=== PATIENT | male | born 1965 | race Caucasian/White ===

== ENCOUNTER 2017-08-01 18:44 | Emergency (ER) | payer MEDICAID, OTHER ==
[~2017-08-01] VITALS: Ht 172.7 cm; Wt 81.8 kg
[~2017-08-01 18:44] MED LIST: FLUO-191 PO; LEVE500T53 PO; LISI-661 PO; OLAN5TAB2 PO
[2017-08-01 19:45] VITALS: BP 132/98
== END 2017-08-01 20:29 | disposition left against medical advice (07) ==
LOC: EMS 18:45
DX: Z76.0 Encounter for issue of repeat prescription (principal); R45.851 Suicidal ideations; F20.9 Schizophrenia, unspecified; F43.10 Post-traumatic stress disorder, unspecified; Z79.899 Other long term (current) drug therapy
CPT/HCPCS: 99281

== ENCOUNTER 2018-10-31 21:26 | Inpatient (IN) | payer MEDICAID, OTHER ==
[~2018-10-31] VITALS: Ht 172.7 cm; Wt 86.1 kg
[2018-10-31] MEDS ORDERED: BUPR100 PO (21:46)
[2018-10-31] MEDS ORDERED: HALO1 PO (21:46)
[2018-10-31 21:57] LABS: BASOPHILS % (AUTO) 0.8 % (0.0-2.0); EOSINOPHILS % (AUTO) 0.5 % (1.0-6.0); HEMATOCRIT 47.2 % (41-53); HEMOGLOBIN 16.3 g/dL (13.5-17.5); LYMPHOCYTES # (AUTO) 1.7 K/uL (1.0-4.8); LYMPHOCYTES % (AUTO) 20.9 % (22.0-44.0); MEAN CORPUSCULAR HEMOGLOBIN 32.5 pg (26.0-34.0); MEAN CORPUSCULAR HGB CONC 34.6 G/dL (31.0-37.0); MEAN CORPUSCULAR VOLUME 94 fL (80-100); MONOCYTES # (AUTO) 0.8 K/uL (0.1-1.0); MONOCYTES % (AUTO) 9.4 % (2.0-9.0); NEUTROPHILS # (AUTO) 5.6 K/uL (1.8-7.7); NEUTROPHILS % (AUTO) 68.4 % (40.0-70.0); PLATELET COUNT (AUTO) 334 K/uL (150-450); RED BLOOD CELL COUNT(AUTO) 5.03 MIL/uL (4.50-5.90); RED CELL DISTRIBUTION WIDTH 14.1 % (11.5-14.5)
[2018-10-31] MEDS ORDERED: PB/HYOSCY/ATR/SCOP/LIDO/MAALOX 55 ML BOTTLE PO ONE (22:00)
[2018-10-31 22:08] LABS: ANION GAP 11 mmol/L (8-16); CALCIUM, TOTAL 9.2 mg/dL (8.8-10.5); CARBON DIOXIDE 28 mmol/L (22-29); CHLORIDE 100 mmol/L (98-107); CREATININE 1.01 mg/dL (0.60-1.30); GLOMERULAR FILTR. RATE CALC > 60 mL/min (>60); GLUCOSE,RANDOM 101 mg/dL (70-110); POTASSIUM 4.4 mmol/L (3.5-5.1); SODIUM SERUM 139 mmol/L (136-145); UREA NITROGEN, BLOOD 17 mg/dL (7-18)
[2018-10-31 22:14] LABS: ALANINE AMINOTRANSFERASE 376 U/L (12-78); ALBUMIN 4.3 g/dL (3.4-5.0); ALKALINE PHOSPHATASE 77 U/L (46-116); ASPARTATE AMINOTRANSFERASE 199 U/L (15-37); BILIRUBIN,TOTAL 0.5 mg/dL (0.1-1.0); TOTAL PROTEIN, SERUM 8.7 g/dL (6.4-8.2)
[2018-10-31 22:35] LABS: AMPHET/METH SCREEN,URINE NEGATIVE (NEGATIVE); BARBITURATE SCREEN, URINE NEGATIVE (NEGATIVE); BENZODIAZEPINES SCREEN,URINE NEGATIVE (NEGATIVE); CANNABINOID SCREEN,URINE NEGATIVE (NEGATIVE); COCAINE SCREEN,URINE NEGATIVE (NEGATIVE); METHADONE SCREEN, URINE NEGATIVE (NEGATIVE); OPIATE SCREEN,URINE POSITIVE (NEGATIVE)
[2018-10-31 22:40] LABS: PHENCYCLIDINE SCREEN,URINE NEGATIVE (NEGATIVE)
[2018-11-01 04:34] VITALS: BP 128/85
[2018-11-01] MEDS: LORazepam 2 MG TABLET PO PRN (05:11)
[2018-11-01] MEDS ORDERED: MAG HYDROX/AL HYDROX/SIMETH ES 30 ML SUSPENSION UDCUP PO PRN (06:15)
[2018-11-01] MEDS ORDERED: ACETAMINOPHEN 325 MG TABLET PO PRN (06:15)
[2018-11-01] MEDS ORDERED: NICOTINE 14 MG/24 HOUR PATCH TD PRN (06:15)
[2018-11-01] MEDS ORDERED: DOCUSATE SODIUM 100 MG CAPSULE PO PRN (06:15)
[2018-11-01] MEDS ORDERED: MAGNESIUM HYDROXIDE SUSPENSION 30 ML UDCUP PO PRN (06:15)
[2018-11-01] MEDS ORDERED: CloNIDine HCL 0.1 MG TABLET PO PRN (06:15)
[2018-11-01] MEDS ORDERED: IBUPROFEN 400 MG TABLET PO PRN (06:15)
[2018-11-01] MEDS ORDERED: ALBUTEROL SULFATE HFA 90 MCG/PUFF 8 GM INHALER IH PRN (06:15)
[2018-11-01] MEDS ORDERED: ONDANSETRON HCL 4 MG TABLET PO PRN (06:15)
[2018-11-01] MEDS ORDERED: PETROLATUM,WHITE 28 GM JELLY TP PRN (06:15)
[2018-11-01] MEDS ORDERED: LOPERAMIDE HCL 2 MG CAPSULE PO PRN (06:15)
[2018-11-01] MEDS ORDERED: GuaiFENesin/D-METHORPHAN [SUGAR-FREE] 200-20MG/10 ML SYRUP UDCUP PO PRN (06:15)
[2018-11-01 08:15] VITALS: BP 119/89
[2018-11-01] MEDS: LevETIRAcetam 500 MG TABLET PO SCH ×4 (08:39→21:00)
[2018-11-01] MEDS ORDERED: LISINOPRIL 10 MG TABLET PO SCH (09:00)
[2018-11-01] MEDS: BuPROPion HCL 150 MG SR TABLET PO SCH ×2 (11:28→16:37)
[2018-11-01] MEDS: FLUoxetine HCL 20 MG CAPSULE PO SCH (11:29)
[2018-11-01 16:56] VITALS: BP 124/82
[2018-11-01] MEDS: OLANZapine 10 MG TABLET PO SCH (20:15)
[2018-11-01] MEDS: HALOPERIDOL 5 MG TABLET PO PRN (20:15)
[2018-11-01] MEDS: ZOLPIDEM TARTRATE 10 MG TABLET PO PRN (20:15)
[2018-11-02 06:40] LABS: BASOPHILS % (AUTO) 0.7 % (0.0-2.0); EOSINOPHILS % (AUTO) 2.2 % (1.0-6.0); HEMATOCRIT 44.7 % (41-53); HEMOGLOBIN 14.9 g/dL (13.5-17.5); LYMPHOCYTES # (AUTO) 2.4 K/uL (1.0-4.8); MEAN CORPUSCULAR HEMOGLOBIN 31.8 pg (26.0-34.0); MEAN CORPUSCULAR HGB CONC 33.4 G/dL (31.0-37.0); MEAN CORPUSCULAR VOLUME 95 fL (80-100); MONOCYTES # (AUTO) 0.8 K/uL (0.1-1.0); MONOCYTES % (AUTO) 15.8 % (2.0-9.0); NEUTROPHILS # (AUTO) 1.8 K/uL (1.8-7.7); NEUTROPHILS % (AUTO) 34.3 % (40.0-70.0); PLATELET COUNT (AUTO) 280 K/uL (150-450); RED BLOOD CELL COUNT(AUTO) 4.69 MIL/uL (4.50-5.90); RED CELL DISTRIBUTION WIDTH 14.1 % (11.5-14.5)
[2018-11-02 06:57] LABS: AMPHET/METH SCREEN,URINE NEGATIVE (NEGATIVE); BARBITURATE SCREEN, URINE POSITIVE (NEGATIVE); BENZODIAZEPINES SCREEN,URINE NEGATIVE (NEGATIVE); CANNABINOID SCREEN,URINE NEGATIVE (NEGATIVE); COCAINE SCREEN,URINE NEGATIVE (NEGATIVE); METHADONE SCREEN, URINE NEGATIVE (NEGATIVE); OPIATE SCREEN,URINE POSITIVE (NEGATIVE)
[2018-11-02 06:59] LABS: PHENCYCLIDINE SCREEN,URINE NEGATIVE (NEGATIVE)
[2018-11-02 07:04] LABS: HEMOGLOBIN A1C 5.4 % (4.5-6.2)
[2018-11-02 07:13] LABS: ALANINE AMINOTRANSFERASE 250 U/L (12-78); ALBUMIN 3.4 g/dL (3.4-5.0); ALKALINE PHOSPHATASE 59 U/L (46-116); ANION GAP 8 mmol/L (8-16); ASPARTATE AMINOTRANSFERASE 118 U/L (15-37); BILIRUBIN,TOTAL 0.6 mg/dL (0.1-1.0); CALCIUM, TOTAL 8.6 mg/dL (8.8-10.5); CARBON DIOXIDE 28 mmol/L (22-29); CHLORIDE 103 mmol/L (98-107); CHOLESTEROL 157 mg/dL (131-200); CREATININE 0.93 mg/dL (0.60-1.30); GLOMERULAR FILTR. RATE CALC > 60 mL/min (>60); GLUCOSE,RANDOM 93 mg/dL (70-110); HDL CHOLESTEROL 52 mg/dL (40-60); LDL CHOL (CALC.) 90 mg/dL (0-130); POTASSIUM 4.4 mmol/L (3.5-5.1); SODIUM SERUM 139 mmol/L (136-145); THYROID STIMULATING HORMONE 2.47 uIU/mL (0.36-3.74); TRIGLYCERIDES 76 mg/dL (15-150); UREA NITROGEN, BLOOD 17 mg/dL (7-18)
[2018-11-02 07:21] LABS: APPEARANCE,URINE CLEAR (CLEAR); BILIRUBIN,URINE NEGATIVE (NEGATIVE); GLUCOSE, URINE (UA) NEGATIVE (NEGATIVE); KETONES,URINE NEGATIVE (NEGATIVE); LEUKOCYTE ESTERASE ,URINE NEGATIVE (NEGATIVE); NITRATE,URINE NEGATIVE (NEGATIVE); OCCULT BLOOD,URINE NEGATIVE (NEGATIVE); PROTEIN,URINE NEGATIVE (NEGATIVE); UROBILINOGEN,URINE 0.2 mg/dL (<=1.0)
[2018-11-02 08:03] VITALS: BP_SYST 11; BP_SYST 111; BP_DIAS 67
[2018-11-02] MEDS: BuPROPion HCL 150 MG SR TABLET PO SCH ×2 (08:07→17:36)
[2018-11-02] MEDS: LISINOPRIL 10 MG TABLET PO SCH (08:07)
[2018-11-02] MEDS: FLUoxetine HCL 20 MG CAPSULE PO SCH (08:07)
[2018-11-02] MEDS: LevETIRAcetam 500 MG TABLET PO SCH ×2 (08:07→21:10)
[2018-11-02] MEDS: LORazepam 2 MG TABLET PO PRN ×3 (08:29→21:10)
[2018-11-02] MEDS: HALOPERIDOL 5 MG TABLET PO PRN (16:09)
[2018-11-02 17:51] VITALS: BP 112/67
[2018-11-02] MEDS: OLANZapine 10 MG TABLET PO SCH (21:10)
[2018-11-02] MEDS: ZOLPIDEM TARTRATE 10 MG TABLET PO PRN (21:10)
[2018-11-03 08:10] VITALS: BP 134/76
[2018-11-03] MEDS: FLUoxetine HCL 20 MG CAPSULE PO SCH (09:58)
[2018-11-03] MEDS: LevETIRAcetam 500 MG TABLET PO SCH ×2 (09:58→21:23)
[2018-11-03] MEDS: BuPROPion HCL 150 MG SR TABLET PO SCH ×2 (09:58→18:00)
[2018-11-03] MEDS: LISINOPRIL 10 MG TABLET PO SCH (09:58)
[2018-11-03] MEDS: LORazepam 2 MG TABLET PO PRN ×2 (09:59→17:14)
[2018-11-03] MEDS: HALOPERIDOL 5 MG TABLET PO PRN (17:14)
[2018-11-03 19:41] VITALS: BP 120/73
[2018-11-03] MEDS: OLANZapine 10 MG TABLET PO SCH (21:23)
[2018-11-04 01:20] VITALS: BP 114/73
[2018-11-04] MEDS: LORazepam 2 MG TABLET PO PRN ×5 (01:25→16:50)
[2018-11-04] MEDS: HALOPERIDOL 5 MG TABLET PO PRN (06:53)
[2018-11-04 08:03] VITALS: BP 131/92
[2018-11-04] MEDS: BuPROPion HCL 150 MG SR TABLET PO SCH ×2 (09:15→16:50)
[2018-11-04] MEDS: LevETIRAcetam 500 MG TABLET PO SCH ×2 (09:16→20:14)
[2018-11-04] MEDS: FLUoxetine HCL 20 MG CAPSULE PO SCH (09:16)
[2018-11-04] MEDS: LISINOPRIL 10 MG TABLET PO SCH (09:16)
[2018-11-04 17:19] VITALS: BP 107/67
[2018-11-04] MEDS: ZOLPIDEM TARTRATE 10 MG TABLET PO PRN (20:14)
[2018-11-04] MEDS: OLANZapine 10 MG TABLET PO SCH (20:14)
[2018-11-05] MEDS: BuPROPion HCL 150 MG SR TABLET PO SCH ×2 (08:36→16:21)
[2018-11-05] MEDS: LevETIRAcetam 500 MG TABLET PO SCH ×2 (08:36→20:04)
[2018-11-05] MEDS: LISINOPRIL 10 MG TABLET PO SCH (08:36)
[2018-11-05] MEDS: FLUoxetine HCL 20 MG CAPSULE PO SCH ×2 (08:36→09:00)
[2018-11-05] MEDS: LORazepam 2 MG TABLET PO PRN (08:39)
[2018-11-05 10:41] VITALS: BP 127/77
[2018-11-05 17:00] VITALS: BP 122/53
[2018-11-05] MEDS: ZOLPIDEM TARTRATE 10 MG TABLET PO PRN (20:06)
[2018-11-05] MEDS: OLANZapine 7.5 MG TABLET PO SCH (20:08)
[2018-11-05] MEDS: FLUTICASONE PROPIONATE 50 MCG/SPRAY 16 GM NASAL SPRAY NASAL SCH (21:18)
[2018-11-06 08:11] VITALS: BP 105/71
[2018-11-06] MEDS: FLUoxetine HCL 20 MG CAPSULE PO SCH (08:57)
[2018-11-06] MEDS: BuPROPion HCL 150 MG SR TABLET PO SCH ×2 (08:58→16:13)
[2018-11-06] MEDS: LORazepam 2 MG TABLET PO PRN (08:58)
[2018-11-06] MEDS: LevETIRAcetam 500 MG TABLET PO SCH ×2 (08:58→20:16)
[2018-11-06] MEDS: LISINOPRIL 10 MG TABLET PO SCH (08:58)
[2018-11-06] MEDS: FLUTICASONE PROPIONATE 50 MCG/SPRAY 16 GM NASAL SPRAY NASAL SCH ×2 (08:59→16:13)
[2018-11-06 17:44] VITALS: BP 130/66
[2018-11-06] MEDS: OLANZapine 7.5 MG TABLET PO SCH (20:16)
[2018-11-06] MEDS: ZOLPIDEM TARTRATE 10 MG TABLET PO PRN (20:19)
[2018-11-07 08:02] VITALS: BP 120/69
[2018-11-07] MEDS: FLUoxetine HCL 20 MG CAPSULE PO SCH (08:35)
[2018-11-07] MEDS: FLUTICASONE PROPIONATE 50 MCG/SPRAY 16 GM NASAL SPRAY NASAL SCH (08:35)
[2018-11-07] MEDS: LORazepam 2 MG TABLET PO PRN (08:35)
[2018-11-07] MEDS: LISINOPRIL 10 MG TABLET PO SCH (08:35)
[2018-11-07] MEDS: BuPROPion HCL 150 MG SR TABLET PO SCH (08:35)
[2018-11-07] MEDS: LevETIRAcetam 500 MG TABLET PO SCH (08:35)
[2018-11-07] MEDS ORDERED: FLUT16H NASAL (13:27)
[2018-11-07] MEDS ORDERED: BUPR150SR PO (13:32)
== END 2018-11-07 14:45 | disposition home or self-care (01) | DRG 750 ==
LOC: EMS 21:40 → 3EI 11-01 03:50
PROVIDERS: ADMIT Psychiatry & Neurology Child & Adolescent Psychiatry; ATTEND Psychiatry & Neurology Child & Adolescent Psychiatry
DX: F25.1 Schizoaffective disorder, depressive type (principal); R45.851 Suicidal ideations; G40.909 Epilepsy, unspecified, not intractable, without status epilepticus; F17.210 Nicotine dependence, cigarettes, uncomplicated; F43.10 Post-traumatic stress disorder, unspecified; I10 Essential (primary) hypertension; J44.9 Chronic obstructive pulmonary disease, unspecified; R74.0 Nonspecific elevation of levels of transaminase and lactic acid dehydrogenase [LDH]; F15.90 Other stimulant use, unspecified, uncomplicated; F11.90 Opioid use, unspecified, uncomplicated; G47.00 Insomnia, unspecified; Z79.899 Other long term (current) drug therapy; Z59.0 Homelessness
CPT/HCPCS: 80307; 83036; 84443; G0480

== ENCOUNTER 2019-05-04 14:22 | Inpatient (IN) | payer MEDICAID, OTHER ==
[~2019-05-04] VITALS: Ht 172.7 cm; Wt 80.8 kg
[~2019-05-04 14:22] MED LIST changes: +BUPR150SR PO; +FLUT16H NASAL
[2019-05-04] MEDS ORDERED: RISP.5 PO (16:20)
[2019-05-04] MEDS ORDERED: HYDR-4031 PO (16:20)
[2019-05-04] MEDS ORDERED: HALOPERIDOL LACTATE 5 MG/ML VIAL IM ONE (16:30)
[2019-05-04] MEDS ORDERED: LORazepam 2 MG/ML VIAL IM ONE (16:30)
[2019-05-04] MEDS ORDERED: DiphenhydrAMINE HCL 50 MG/ML VIAL IM ONE (16:30)
[2019-05-04] MEDS ORDERED: HALOPERIDOL 5 MG TABLET PO PRN (19:00)
[2019-05-04] MEDS ORDERED: ZOLPIDEM TARTRATE 10 MG TABLET PO PRN (19:00)
[2019-05-04 21:03] LABS: BASOPHILS % (AUTO) 1.6 % (0.0-2.0); EOSINOPHILS % (AUTO) 1.2 % (1.0-6.0); HEMATOCRIT 41.8 % (41-53); HEMOGLOBIN 14.5 g/dL (13.5-17.5); LYMPHOCYTES # (AUTO) 2.4 K/uL (1.0-4.8); MEAN CORPUSCULAR HEMOGLOBIN 32.2 pg (26.0-34.0); MEAN CORPUSCULAR HGB CONC 34.7 G/dL (31.0-37.0); MEAN CORPUSCULAR VOLUME 93 fL (80-100); MONOCYTES # (AUTO) 0.7 K/uL (0.1-1.0); MONOCYTES % (AUTO) 11.7 % (2.0-9.0); NEUTROPHILS # (AUTO) 2.6 K/uL (1.8-7.7); NEUTROPHILS % (AUTO) 44.5 % (40.0-70.0); PLATELET COUNT (AUTO) 338 K/uL (150-450); RED CELL DISTRIBUTION WIDTH 13.7 % (11.5-14.5)
[2019-05-04 21:31] LABS: ANION GAP 13 mmol/L (8-16); CALCIUM, TOTAL 8.6 mg/dL (8.8-10.5); CARBON DIOXIDE 24 mmol/L (22-29); CHLORIDE 101 mmol/L (98-107); CREATININE 0.82 mg/dL (0.60-1.30); GLOMERULAR FILTR. RATE CALC > 60 mL/min (>60); GLUCOSE,RANDOM 85 mg/dL (70-110); POTASSIUM 3.9 mmol/L (3.5-5.1); SODIUM SERUM 138 mmol/L (136-145); UREA NITROGEN, BLOOD 9 mg/dL (7-18)
[2019-05-04 21:37] LABS: ALANINE AMINOTRANSFERASE 36 U/L (12-78); ALBUMIN 3.4 g/dL (3.4-5.0); ALKALINE PHOSPHATASE 64 U/L (46-116); ASPARTATE AMINOTRANSFERASE 43 U/L (15-37); BILIRUBIN,TOTAL 1.4 mg/dL (0.1-1.0)
[2019-05-05 02:25] VITALS: BP 111/63
[2019-05-05] MEDS ORDERED: INFLUENZA VIRUS VACCINE QVS 2019-20 (3YR+)/PF 60 MCG/0.5 ML SYRINGE IM ONE (03:45)
[2019-05-05 07:53] LABS: CHOL/HDL RATIO 2.5 (4.2-7.3)
[2019-05-05 08:16] VITALS: BP 118/71
[2019-05-05] MEDS ORDERED: PETROLATUM,WHITE 28 GM JELLY TP PRN (12:15)
[2019-05-05] MEDS ORDERED: MAGNESIUM HYDROXIDE SUSPENSION 30 ML UDCUP PO PRN (12:15)
[2019-05-05] MEDS ORDERED: ACETAMINOPHEN 325 MG TABLET PO PRN (12:15)
[2019-05-05] MEDS ORDERED: ONDANSETRON HCL 4 MG TABLET PO PRN (12:15)
[2019-05-05] MEDS ORDERED: MAG HYDROX/AL HYDROX/SIMETH ES 30 ML SUSPENSION UDCUP PO PRN (12:15)
[2019-05-05] MEDS ORDERED: LOPERAMIDE HCL 2 MG CAPSULE PO PRN (12:15)
[2019-05-05] MEDS ORDERED: IBUPROFEN 400 MG TABLET PO PRN (12:15)
[2019-05-05] MEDS ORDERED: CloNIDine HCL 0.1 MG TABLET PO PRN (12:15)
[2019-05-05] MEDS ORDERED: NICOTINE 14 MG/24 HOUR PATCH TD PRN (12:15)
[2019-05-05] MEDS ORDERED: ALBUTEROL SULFATE HFA 90 MCG/PUFF 8 GM INHALER IH PRN (12:15)
[2019-05-05] MEDS ORDERED: DOCUSATE SODIUM 100 MG CAPSULE PO PRN (12:15)
[2019-05-05] MEDS: LevETIRAcetam 500 MG TABLET PO SCH ×3 (12:15→20:53)
[2019-05-05] MEDS ORDERED: GuaiFENesin/D-METHORPHAN [SUGAR-FREE] 200-20MG/10 ML SYRUP UDCUP PO PRN (12:15)
[2019-05-05] MEDS: FLUTICASONE PROPIONATE 50 MCG/SPRAY 16 GM NASAL SPRAY NASAL SCH (16:21)
[2019-05-05] MEDS: LORazepam 2 MG TABLET PO PRN (17:00)
[2019-05-05 17:01] VITALS: BP 114/65
[2019-05-05 17:36] VITALS: BP 114/65
[2019-05-05] MEDS ORDERED: OLANZapine 7.5 MG TABLET PO SCH (21:00)
[2019-05-06 06:06] VITALS: BP 108/67
[2019-05-06] MEDS: LORazepam 2 MG TABLET PO PRN (06:20)
[2019-05-06 07:57] VITALS: BP 102/38
[2019-05-06] MEDS: LevETIRAcetam 500 MG TABLET PO SCH (08:27)
[2019-05-06] MEDS: FLUTICASONE PROPIONATE 50 MCG/SPRAY 16 GM NASAL SPRAY NASAL SCH (08:28)
[2019-05-06] MEDS ORDERED: LISINOPRIL 10 MG TABLET PO SCH (09:00)
== END 2019-05-06 13:40 | disposition home or self-care (01) | DRG 750 ==
LOC: EMS 14:23 → B3A 05-05 00:57 → UNDODISIN 05-06 13:40
PROVIDERS: ADMIT Psychiatry & Neurology Psychiatry; ATTEND Psychiatry & Neurology Psychiatry
DX: F25.0 Schizoaffective disorder, bipolar type (principal); G40.909 Epilepsy, unspecified, not intractable, without status epilepticus; F10.10 Alcohol abuse, uncomplicated; I10 Essential (primary) hypertension; J30.9 Allergic rhinitis, unspecified; F17.210 Nicotine dependence, cigarettes, uncomplicated; Y90.9 Presence of alcohol in blood, level not specified; F43.10 Post-traumatic stress disorder, unspecified; Z59.0 Homelessness; Z91.83 Wandering in diseases classified elsewhere
CPT/HCPCS: 99291; G0480; J1200; J1630; J2060

== ENCOUNTER 2019-05-08 15:41 | Inpatient (IN) | payer MEDICAID, OTHER ==
[~2019-05-08] VITALS: Ht 172.7 cm; Wt 85.0 kg
[~2019-05-08 15:41] MED LIST changes: -BUPR150SR PO; -FLUO-191 PO
[2019-05-08] MEDS ORDERED: BUPR75 PO (15:56)
[2019-05-08 16:48] LABS: BASOPHILS % (AUTO) 0.7 % (0.0-2.0); EOSINOPHILS % (AUTO) 0.1 % (1.0-6.0); HEMATOCRIT 41.8 % (41-53); HEMOGLOBIN 14.4 g/dL (13.5-17.5); LYMPHOCYTES # (AUTO) 2.8 K/uL (1.0-4.8); MEAN CORPUSCULAR HEMOGLOBIN 32.2 pg (26.0-34.0); MEAN CORPUSCULAR HGB CONC 34.3 G/dL (31.0-37.0); MEAN CORPUSCULAR VOLUME 94 fL (80-100); MONOCYTES # (AUTO) 1.1 K/uL (0.1-1.0); MONOCYTES % (AUTO) 15.6 % (2.0-9.0); NEUTROPHILS # (AUTO) 3.1 K/uL (1.8-7.7); NEUTROPHILS % (AUTO) 43.6 % (40.0-70.0); PLATELET COUNT (AUTO) 345 K/uL (150-450); RED BLOOD CELL COUNT(AUTO) 4.47 MIL/uL (4.50-5.90); RED CELL DISTRIBUTION WIDTH 13.8 % (11.5-14.5)
[2019-05-08] MEDS ORDERED: OLAN7.5T2 PO (17:01)
[2019-05-08 17:02] LABS: ANION GAP 10 mmol/L (8-16); CALCIUM, TOTAL 9.2 mg/dL (8.8-10.5); CARBON DIOXIDE 26 mmol/L (22-29); CHLORIDE 103 mmol/L (98-107); CREATININE 1.44 mg/dL (0.60-1.30); GLOMERULAR FILTR. RATE CALC 51 mL/min (>60); GLUCOSE,RANDOM 85 mg/dL (70-110); POTASSIUM 3.6 mmol/L (3.5-5.1); SODIUM SERUM 139 mmol/L (136-145); UREA NITROGEN, BLOOD 12 mg/dL (7-18)
[2019-05-08 17:06] LABS: ALANINE AMINOTRANSFERASE 47 U/L (12-78); ALBUMIN 4.2 g/dL (3.4-5.0); ALKALINE PHOSPHATASE 67 U/L (46-116); ASPARTATE AMINOTRANSFERASE 69 U/L (15-37); BILIRUBIN,TOTAL 0.6 mg/dL (0.1-1.0); TOTAL PROTEIN, SERUM 8.4 g/dL (6.4-8.2)
[2019-05-08 18:50] VITALS: BP 99/67
[2019-05-09 08:57] VITALS: BP 100/64
[2019-05-09] MEDS: NICOTINE 21 MG/24 HOUR PATCH TD SCH (09:00)
[2019-05-09 09:10] VITALS: BP 100/64
[2019-05-09] MEDS ORDERED: OLANZapine 10 MG TABLET PO ONE (10:30)
[2019-05-09] MEDS ORDERED: DOCUSATE SODIUM 100 MG CAPSULE PO PRN (13:30)
[2019-05-09] MEDS ORDERED: OMEPRAZOLE 20 MG CAPSULE PO PRN (13:30)
[2019-05-09] MEDS ORDERED: ACETAMINOPHEN 325 MG TABLET PO PRN (13:30)
[2019-05-09] MEDS ORDERED: ONDANSETRON HCL 4 MG TABLET PO PRN (13:30)
[2019-05-09] MEDS ORDERED: CloNIDine HCL 0.1 MG TABLET PO PRN (13:30)
[2019-05-09] MEDS ORDERED: MAGNESIUM HYDROXIDE SUSPENSION 30 ML UDCUP PO PRN (13:30)
[2019-05-09] MEDS ORDERED: IBUPROFEN 600 MG TABLET PO PRN (13:30)
[2019-05-09] MEDS ORDERED: ALBUTEROL SULFATE HFA 90 MCG/PUFF 8 GM INHALER IH PRN (13:30)
[2019-05-09] MEDS ORDERED: BACITRACIN 28.4 GM OINTMENT TP PRN (13:30)
[2019-05-09] MEDS ORDERED: LOPERAMIDE HCL 2 MG CAPSULE PO PRN (13:30)
[2019-05-09] MEDS ORDERED: BENZOCAINE/MENTHOL LOZENGE MM PRN (13:30)
[2019-05-09] MEDS ORDERED: MAG HYDROX/AL HYDROX/SIMETH ES 30 ML SUSPENSION UDCUP PO PRN (13:30)
[2019-05-09] MEDS ORDERED: PETROLATUM,WHITE 28 GM JELLY TP PRN (13:30)
[2019-05-09 19:44] VITALS: BP 107/57
[2019-05-09] MEDS: LevETIRAcetam 500 MG TABLET PO SCH ×2 (20:06→20:50)
[2019-05-09 20:43] VITALS: BP 118/72
[2019-05-09] MEDS: LORazepam 2 MG TABLET PO PRN (20:50)
[2019-05-09] MEDS: ZOLPIDEM TARTRATE 10 MG TABLET PO PRN (21:37)
[2019-05-10] MEDS: NICOTINE 21 MG/24 HOUR PATCH TD SCH (09:00)
[2019-05-10] MEDS: BuPROPion HCL 75 MG TABLET PO SCH ×3 (09:22→16:46)
[2019-05-10] MEDS: LevETIRAcetam 500 MG TABLET PO SCH ×2 (09:22→20:50)
[2019-05-10] MEDS: OLANZapine 10 MG TABLET PO SCH ×2 (09:23→16:46)
[2019-05-10 09:25] VITALS: BP 118/70
[2019-05-10 17:30] VITALS: BP 110/68
[2019-05-11 08:44] VITALS: BP 109/65
[2019-05-11] MEDS: NICOTINE 21 MG/24 HOUR PATCH TD SCH (09:00)
[2019-05-11] MEDS: LevETIRAcetam 500 MG TABLET PO SCH ×2 (09:19→20:09)
[2019-05-11] MEDS: OLANZapine 10 MG TABLET PO SCH ×2 (09:19→16:18)
[2019-05-11] MEDS: BuPROPion HCL 75 MG TABLET PO SCH ×3 (09:20→16:18)
[2019-05-12 08:29] VITALS: BP 125/57
[2019-05-12] MEDS ORDERED: BuPROPion HCL XL 150 MG ER TABLET PO SCH (09:00)
[2019-05-12] MEDS: NICOTINE 21 MG/24 HOUR PATCH TD SCH (09:00)
[2019-05-12] MEDS: LevETIRAcetam 500 MG TABLET PO SCH ×2 (09:43→20:05)
[2019-05-12] MEDS: OLANZapine 10 MG TABLET PO SCH (09:43)
[2019-05-12] MEDS ORDERED: BuPROPion HCL XL 150 MG ER TABLET PO ONE (11:15)
[2019-05-12] MEDS: OLANZapine 7.5 MG TABLET PO SCH (16:28)
[2019-05-12] MEDS: ZOLPIDEM TARTRATE 10 MG TABLET PO PRN (20:05)
[2019-05-13] MEDS: LevETIRAcetam 500 MG TABLET PO SCH ×2 (08:29→20:26)
[2019-05-13] MEDS: OLANZapine 7.5 MG TABLET PO SCH ×2 (08:30→16:36)
[2019-05-13] MEDS: BuPROPion HCL XL 150 MG ER TABLET PO SCH (08:30)
[2019-05-13] MEDS: NICOTINE 21 MG/24 HOUR PATCH TD SCH (08:31)
[2019-05-13 09:42] VITALS: BP 103/61
[2019-05-13 18:53] VITALS: BP 92/50
[2019-05-13] MEDS: ZOLPIDEM TARTRATE 10 MG TABLET PO PRN (20:26)
[2019-05-14] MEDS: NICOTINE 21 MG/24 HOUR PATCH TD SCH (09:00)
[2019-05-14 09:05] VITALS: BP 143/63
[2019-05-14] MEDS: BuPROPion HCL XL 150 MG ER TABLET PO SCH (09:13)
[2019-05-14] MEDS: LevETIRAcetam 500 MG TABLET PO SCH ×2 (09:13→20:35)
[2019-05-14] MEDS: OLANZapine 7.5 MG TABLET PO SCH ×2 (09:13→16:32)
[2019-05-14] MEDS: LORazepam 2 MG TABLET PO PRN (09:33)
[2019-05-14] MEDS ORDERED: NICOTINE 21 MG/24 HOUR PATCH TD PRN (12:30)
[2019-05-14 16:15] VITALS: BP 103/65
[2019-05-15] MEDS: LORazepam 2 MG TABLET PO PRN (08:18)
[2019-05-15] MEDS: OLANZapine 7.5 MG TABLET PO SCH ×2 (08:18→16:39)
[2019-05-15] MEDS: LevETIRAcetam 500 MG TABLET PO SCH ×2 (08:18→20:29)
[2019-05-15] MEDS: BuPROPion HCL XL 150 MG ER TABLET PO SCH (08:20)
[2019-05-15 08:35] VITALS: BP 116/71
[2019-05-15] MEDS: ZOLPIDEM TARTRATE 10 MG TABLET PO PRN (20:30)
[2019-05-15 21:35] VITALS: BP 102/76
[2019-05-16] MEDS: LevETIRAcetam 500 MG TABLET PO SCH ×2 (08:00→20:01)
[2019-05-16] MEDS: LORazepam 2 MG TABLET PO PRN ×3 (08:00→23:54)
[2019-05-16] MEDS: BuPROPion HCL XL 150 MG ER TABLET PO SCH (08:01)
[2019-05-16] MEDS: OLANZapine 7.5 MG TABLET PO SCH ×2 (08:01→16:04)
[2019-05-16 08:59] VITALS: BP 117/78
[2019-05-16] MEDS: ZOLPIDEM TARTRATE 10 MG TABLET PO PRN (20:01)
[2019-05-16 20:03] VITALS: BP 101/76
[2019-05-17] MEDS: HALOPERIDOL 5 MG TABLET PO PRN (01:37)
[2019-05-17 02:37] VITALS: BP 106/63
[2019-05-17 09:07] VITALS: BP 124/76
[2019-05-17] MEDS: LORazepam 2 MG TABLET PO PRN ×2 (09:08→15:44)
[2019-05-17] MEDS: OLANZapine 7.5 MG TABLET PO SCH ×2 (09:08→15:45)
[2019-05-17] MEDS: BuPROPion HCL XL 150 MG ER TABLET PO SCH (09:08)
[2019-05-17] MEDS: LevETIRAcetam 500 MG TABLET PO SCH ×2 (09:08→20:29)
[2019-05-17 18:15] VITALS: BP 143/76
[2019-05-17] MEDS: ZOLPIDEM TARTRATE 10 MG TABLET PO PRN (20:29)
[2019-05-18] MEDS: BuPROPion HCL XL 150 MG ER TABLET PO SCH (08:08)
[2019-05-18] MEDS: LevETIRAcetam 500 MG TABLET PO SCH ×2 (08:08→20:05)
[2019-05-18] MEDS: OLANZapine 7.5 MG TABLET PO SCH ×2 (08:09→16:41)
[2019-05-18] MEDS: LORazepam 2 MG TABLET PO PRN (08:09)
[2019-05-18 09:10] VITALS: BP 120/81
[2019-05-18] MEDS: GABAPENTIN 300 MG CAPSULE PO SCH ×2 (13:12→16:41)
[2019-05-18] MEDS: ZOLPIDEM TARTRATE 10 MG TABLET PO PRN (19:41)
[2019-05-19 06:20] VITALS: BP 114/73
[2019-05-19] MEDS: HALOPERIDOL 5 MG TABLET PO PRN (06:24)
[2019-05-19] MEDS: LORazepam 2 MG TABLET PO PRN (06:26)
[2019-05-19 08:35] VITALS: BP 118/78
[2019-05-19] MEDS: LevETIRAcetam 500 MG TABLET PO SCH ×2 (08:38→20:17)
[2019-05-19] MEDS: OLANZapine 7.5 MG TABLET PO SCH ×2 (08:38→16:00)
[2019-05-19] MEDS: GABAPENTIN 300 MG CAPSULE PO SCH ×2 (08:38→16:00)
[2019-05-19] MEDS: BuPROPion HCL XL 150 MG ER TABLET PO SCH (08:38)
[2019-05-20 08:04] VITALS: BP 119/50
[2019-05-20] MEDS: BuPROPion HCL XL 150 MG ER TABLET PO SCH (08:12)
[2019-05-20] MEDS: GABAPENTIN 300 MG CAPSULE PO SCH ×2 (08:12→16:02)
[2019-05-20] MEDS: LevETIRAcetam 500 MG TABLET PO SCH ×2 (08:12→20:20)
[2019-05-20] MEDS: OLANZapine 7.5 MG TABLET PO SCH ×2 (08:12→16:02)
[2019-05-20] MEDS: LORazepam 2 MG TABLET PO PRN (16:03)
[2019-05-20 16:38] VITALS: BP 118/72
[2019-05-21] MEDS: OLANZapine 7.5 MG TABLET PO SCH (08:34)
[2019-05-21] MEDS: GABAPENTIN 300 MG CAPSULE PO SCH (08:34)
[2019-05-21] MEDS: BuPROPion HCL XL 150 MG ER TABLET PO SCH (08:34)
[2019-05-21] MEDS: LORazepam 2 MG TABLET PO PRN (08:35)
[2019-05-21] MEDS: LevETIRAcetam 500 MG TABLET PO SCH (08:35)
[2019-05-21 08:45] VITALS: BP 134/77
[2019-05-21] MEDS ORDERED: GABA-531 PO (12:38)
== END 2019-05-21 13:38 | disposition home or self-care (01) | DRG 885 ==
LOC: EMS 15:43 → 3EI 17:28
PROVIDERS: ADMIT Psychiatry & Neurology Psychiatry; ATTEND Psychiatry & Neurology Psychiatry
DX: F25.0 Schizoaffective disorder, bipolar type (principal); N18.9 Chronic kidney disease, unspecified; R45.851 Suicidal ideations; F43.10 Post-traumatic stress disorder, unspecified; G40.909 Epilepsy, unspecified, not intractable, without status epilepticus; F12.90 Cannabis use, unspecified, uncomplicated; F15.10 Other stimulant abuse, uncomplicated; F17.200 Nicotine dependence, unspecified, uncomplicated; Z71.6 Tobacco abuse counseling; G47.00 Insomnia, unspecified; Z81.8 Family history of other mental and behavioral disorders; Z59.0 Homelessness
CPT/HCPCS: 87081; G0480; J3535

== ENCOUNTER 2019-09-16 07:47 | Inpatient (IN) | payer MEDICAID, OTHER ==
[~2019-09-16] VITALS: Ht 172.7 cm; Wt 89.8 kg
[~2019-09-16 07:47] MED LIST changes: +BUPR75 PO; -FLUT16H NASAL; +GABA-531 PO; -LISI-661 PO; -OLAN5TAB2 PO; +OLAN7.5T2 PO
[2019-09-16 08:56] LABS: BASOPHILS % (AUTO) 0.4 % (0.0-2.0); HEMATOCRIT 45.3 % (41-53); HEMOGLOBIN 15.1 g/dL (13.5-17.5); LYMPHOCYTES # (AUTO) 3.3 K/uL (1.0-4.8); LYMPHOCYTES % (AUTO) 28.4 % (22.0-44.0); MEAN CORPUSCULAR HGB CONC 33.4 G/dL (31.0-37.0); MEAN CORPUSCULAR VOLUME 93 fL (80-100); MONOCYTES # (AUTO) 1.3 K/uL (0.1-1.0); MONOCYTES % (AUTO) 11.4 % (2.0-9.0); NEUTROPHILS # (AUTO) 6.9 K/uL (1.8-7.7); NEUTROPHILS % (AUTO) 58.8 % (40.0-70.0); PLATELET COUNT (AUTO) 245 K/uL (150-450); RED BLOOD CELL COUNT(AUTO) 4.88 MIL/uL (4.50-5.90); RED CELL DISTRIBUTION WIDTH 15.2 % (11.5-14.5)
[2019-09-16] MEDS ORDERED: HALOPERIDOL LACTATE 5 MG/ML VIAL IM ONE (09:00)
[2019-09-16] MEDS ORDERED: LORazepam 2 MG/ML VIAL IM ONE (09:00)
[2019-09-16] MEDS ORDERED: DiphenhydrAMINE HCL 50 MG/ML VIAL IM ONE (09:00)
[2019-09-16 09:24] LABS: BARBITURATE SCREEN, URINE NEGATIVE (NEGATIVE); BENZODIAZEPINES SCREEN,URINE NEGATIVE (NEGATIVE); CANNABINOID SCREEN,URINE POSITIVE (NEGATIVE); COCAINE SCREEN,URINE NEGATIVE (NEGATIVE); METHADONE SCREEN, URINE NEGATIVE (NEGATIVE); OPIATE SCREEN,URINE NEGATIVE (NEGATIVE)
[2019-09-16 09:26] LABS: PHENCYCLIDINE SCREEN,URINE NEGATIVE (NEGATIVE)
[2019-09-16 09:34] LABS: AMPHET/METH SCREEN,URINE NEGATIVE (NEGATIVE)
[2019-09-16 10:36] LABS: ALANINE AMINOTRANSFERASE 42 U/L (12-78); ALBUMIN 3.3 g/dL (3.4-5.0); ALKALINE PHOSPHATASE 81 U/L (46-116); ANION GAP 9 mmol/L (8-16); ASPARTATE AMINOTRANSFERASE 38 U/L (15-37); BILIRUBIN,TOTAL 0.4 mg/dL (0.1-1.0); CALCIUM, TOTAL 8.5 mg/dL (8.8-10.5); CARBON DIOXIDE 27 mmol/L (22-29); CHLORIDE 106 mmol/L (98-107); GLOMERULAR FILTR. RATE CALC > 60 mL/min (>60); GLUCOSE,RANDOM 114 mg/dL (70-110); SODIUM SERUM 142 mmol/L (136-145); UREA NITROGEN, BLOOD 7 mg/dL (7-18)
[2019-09-16 10:38] LABS: POTASSIUM 2.8 mmol/L (3.5-5.1)
[2019-09-16] MEDS ORDERED: POTASSIUM CHLORIDE 10% 40 MEQ/30 ML LIQUID UDCUP PO ONE (11:00)
[2019-09-16 13:45] VITALS: BP 118/76
[2019-09-16 13:50] VITALS: BP 118/76
[2019-09-16 14:45] VITALS: BP 121/80
[2019-09-16 16:48] VITALS: BP 139/80
[2019-09-16 16:49] VITALS: BP 139/80
[2019-09-16] MEDS: HALOPERIDOL 5 MG TABLET PO PRN (20:37)
[2019-09-16] MEDS: LORazepam 2 MG TABLET PO PRN (20:37)
[2019-09-16] MEDS ORDERED: ONDANSETRON HCL 4 MG TABLET PO PRN (20:45)
[2019-09-16] MEDS ORDERED: BACITRACIN 28.4 GM OINTMENT TP PRN (20:45)
[2019-09-16] MEDS ORDERED: MAG HYDROX/AL HYDROX/SIMETH ES 30 ML SUSPENSION UDCUP PO PRN (20:45)
[2019-09-16] MEDS ORDERED: BENZOCAINE/MENTHOL LOZENGE MM PRN (20:45)
[2019-09-16] MEDS ORDERED: PETROLATUM,WHITE 28 GM JELLY TP PRN (20:45)
[2019-09-16] MEDS ORDERED: ALBUTEROL SULFATE HFA 90 MCG/PUFF 8 GM INHALER IH PRN (20:45)
[2019-09-16] MEDS ORDERED: ACETAMINOPHEN 325 MG TABLET PO PRN (20:45)
[2019-09-16] MEDS ORDERED: IBUPROFEN 600 MG TABLET PO PRN (20:45)
[2019-09-16] MEDS ORDERED: MAGNESIUM HYDROXIDE SUSPENSION 30 ML UDCUP PO PRN (20:45)
[2019-09-16] MEDS ORDERED: CloNIDine HCL 0.1 MG TABLET PO PRN (20:45)
[2019-09-16] MEDS ORDERED: LOPERAMIDE HCL 2 MG CAPSULE PO PRN (20:45)
[2019-09-16] MEDS: LevETIRAcetam 500 MG TABLET PO SCH (21:18)
[2019-09-17 00:44] VITALS: BP 106/59
[2019-09-17 04:45] VITALS: BP 119/76
[2019-09-17 08:45] VITALS: BP 120/75
[2019-09-17] MEDS: GABAPENTIN 300 MG CAPSULE PO SCH ×2 (09:40→17:34)
[2019-09-17] MEDS: OMEPRAZOLE 20 MG CAPSULE PO SCH (09:40)
[2019-09-17] MEDS: LevETIRAcetam 500 MG TABLET PO SCH ×2 (09:40→20:20)
[2019-09-17] MEDS: DOCUSATE SODIUM 100 MG CAPSULE PO SCH (09:41)
[2019-09-17] MEDS: HALOPERIDOL 5 MG TABLET PO PRN (20:19)
[2019-09-17] MEDS: OLANZapine 7.5 MG TABLET PO SCH (20:20)
[2019-09-18 04:30] VITALS: BP 108/82
[2019-09-18 04:33] VITALS: BP 108/82
[2019-09-18] MEDS: OMEPRAZOLE 20 MG CAPSULE PO SCH (09:34)
[2019-09-18] MEDS: DOCUSATE SODIUM 100 MG CAPSULE PO SCH (09:34)
[2019-09-18] MEDS: GABAPENTIN 300 MG CAPSULE PO SCH ×2 (09:34→16:30)
[2019-09-18] MEDS: LORazepam 2 MG TABLET PO PRN (09:34)
[2019-09-18] MEDS: LevETIRAcetam 500 MG TABLET PO SCH ×2 (09:34→20:43)
[2019-09-18] MEDS: HALOPERIDOL 5 MG TABLET PO PRN ×2 (09:35→20:58)
[2019-09-18 10:12] VITALS: BP 94/50
[2019-09-18 14:12] VITALS: BP 94/50
[2019-09-18 16:15] VITALS: BP 140/82
[2019-09-18 16:16] VITALS: BP 140/82
[2019-09-18] MEDS: OLANZapine 7.5 MG TABLET PO SCH (20:44)
[2019-09-19 06:03] VITALS: BP 115/71
[2019-09-19 06:17] VITALS: BP 115/71
[2019-09-19] MEDS: THIAMINE HCL 100 MG TABLET PO SCH (08:42)
[2019-09-19] MEDS: DOCUSATE SODIUM 100 MG CAPSULE PO SCH (08:42)
[2019-09-19 08:44] VITALS: BP 129/76
[2019-09-19] MEDS: GABAPENTIN 300 MG CAPSULE PO SCH ×2 (08:50→16:19)
[2019-09-19] MEDS: OMEPRAZOLE 20 MG CAPSULE PO SCH (08:50)
[2019-09-19] MEDS: FOLIC ACID 1 MG TABLET PO SCH (08:50)
[2019-09-19] MEDS: LevETIRAcetam 500 MG TABLET PO SCH ×2 (08:50→20:24)
[2019-09-19 16:00] VITALS: BP 111/65
[2019-09-19] MEDS: LORazepam 2 MG TABLET PO PRN (16:19)
[2019-09-19] MEDS: HALOPERIDOL 5 MG TABLET PO PRN (16:19)
[2019-09-19] MEDS: OLANZapine 7.5 MG TABLET PO SCH (20:24)
[2019-09-19] MEDS: ZOLPIDEM TARTRATE 10 MG TABLET PO PRN (20:24)
[2019-09-20 02:26] VITALS: BP 114/67
[2019-09-20 02:28] VITALS: BP 124/68
[2019-09-20 09:14] VITALS: BP 124/80
[2019-09-20] MEDS: OMEPRAZOLE 20 MG CAPSULE PO SCH (09:31)
[2019-09-20] MEDS: FOLIC ACID 1 MG TABLET PO SCH (09:31)
[2019-09-20] MEDS: GABAPENTIN 300 MG CAPSULE PO SCH ×2 (09:31→16:03)
[2019-09-20] MEDS: DOCUSATE SODIUM 100 MG CAPSULE PO SCH (09:31)
[2019-09-20] MEDS: THIAMINE HCL 100 MG TABLET PO SCH (09:31)
[2019-09-20] MEDS: LevETIRAcetam 500 MG TABLET PO SCH ×2 (09:37→20:10)
[2019-09-20] MEDS: HALOPERIDOL 5 MG TABLET PO PRN (16:03)
[2019-09-20] MEDS: LORazepam 2 MG TABLET PO PRN (16:03)
[2019-09-20 16:17] VITALS: BP 122/65
[2019-09-20] MEDS: OLANZapine 7.5 MG TABLET PO SCH (20:11)
[2019-09-20] MEDS: ZOLPIDEM TARTRATE 10 MG TABLET PO PRN (20:11)
[2019-09-20] MEDS ORDERED: BuPROPion HCL XL 150 MG ER TABLET PO SCH (22:30)
[2019-09-21 05:54] VITALS: BP 113/74
[2019-09-21] MEDS: GABAPENTIN 300 MG CAPSULE PO SCH ×2 (08:13→16:01)
[2019-09-21] MEDS: THIAMINE HCL 100 MG TABLET PO SCH (08:14)
[2019-09-21] MEDS: FOLIC ACID 1 MG TABLET PO SCH (08:14)
[2019-09-21] MEDS: DOCUSATE SODIUM 100 MG CAPSULE PO SCH (08:14)
[2019-09-21] MEDS: LevETIRAcetam 500 MG TABLET PO SCH ×2 (08:14→20:34)
[2019-09-21] MEDS: BuPROPion HCL XL 150 MG ER TABLET PO SCH (08:14)
[2019-09-21] MEDS: OMEPRAZOLE 20 MG CAPSULE PO SCH (08:14)
[2019-09-21] MEDS: HALOPERIDOL 5 MG TABLET PO PRN (16:01)
[2019-09-21] MEDS: LORazepam 2 MG TABLET PO PRN (16:01)
[2019-09-21 16:15] VITALS: BP 118/73
[2019-09-21] MEDS: OLANZapine 7.5 MG TABLET PO SCH (20:34)
[2019-09-21] MEDS: ZOLPIDEM TARTRATE 10 MG TABLET PO PRN (20:34)
[2019-09-22 06:24] VITALS: BP 120/78
[2019-09-22 08:27] VITALS: BP 134/67
[2019-09-22] MEDS: DOCUSATE SODIUM 100 MG CAPSULE PO SCH (09:00)
[2019-09-22] MEDS: THIAMINE HCL 100 MG TABLET PO SCH (09:54)
[2019-09-22] MEDS: GABAPENTIN 300 MG CAPSULE PO SCH ×2 (09:54→17:10)
[2019-09-22] MEDS: OMEPRAZOLE 20 MG CAPSULE PO SCH (09:54)
[2019-09-22] MEDS: FOLIC ACID 1 MG TABLET PO SCH (09:54)
[2019-09-22] MEDS: LevETIRAcetam 500 MG TABLET PO SCH ×2 (09:54→21:21)
[2019-09-22] MEDS: BuPROPion HCL XL 150 MG ER TABLET PO SCH (09:55)
[2019-09-22 16:17] VITALS: BP 129/89
[2019-09-22] MEDS: HALOPERIDOL 5 MG TABLET PO PRN (17:10)
[2019-09-22] MEDS: LORazepam 2 MG TABLET PO PRN (17:10)
[2019-09-22] MEDS: ZOLPIDEM TARTRATE 10 MG TABLET PO PRN (21:21)
[2019-09-22] MEDS: OLANZapine 7.5 MG TABLET PO SCH (21:21)
[2019-09-23 06:25] VITALS: BP 96/60
[2019-09-23 08:15] VITALS: BP 115/70
[2019-09-23] MEDS: THIAMINE HCL 100 MG TABLET PO SCH (09:15)
[2019-09-23] MEDS: OMEPRAZOLE 20 MG CAPSULE PO SCH (09:15)
[2019-09-23] MEDS: BuPROPion HCL XL 150 MG ER TABLET PO SCH (09:15)
[2019-09-23] MEDS: LevETIRAcetam 500 MG TABLET PO SCH (09:15)
[2019-09-23] MEDS: GABAPENTIN 300 MG CAPSULE PO SCH (09:15)
[2019-09-23] MEDS: FOLIC ACID 1 MG TABLET PO SCH (09:15)
[2019-09-23] MEDS: DOCUSATE SODIUM 100 MG CAPSULE PO SCH (09:15)
[2019-09-23] MEDS ORDERED: BUPR-93 PO (09:41)
== END 2019-09-23 10:15 | disposition home or self-care (01) | DRG 750 ==
LOC: EMS 07:48 → B3A 12:20
PROVIDERS: ADMIT Psychiatry & Neurology Psychiatry; ATTEND Psychiatry & Neurology Psychiatry
DX: F25.9 Schizoaffective disorder, unspecified (principal); R45.850 Homicidal ideations; R45.851 Suicidal ideations; G40.909 Epilepsy, unspecified, not intractable, without status epilepticus; D72.829 Elevated white blood cell count, unspecified; E87.6 Hypokalemia; F10.129 Alcohol abuse with intoxication, unspecified; F12.10 Cannabis abuse, uncomplicated; F17.200 Nicotine dependence, unspecified, uncomplicated; F32.9 Major depressive disorder, single episode, unspecified; F43.10 Post-traumatic stress disorder, unspecified; K59.00 Constipation, unspecified; Z91.14 Patient's other noncompliance with medication regimen; K21.9 Gastro-esophageal reflux disease without esophagitis; Z59.0 Homelessness; Z56.0 Unemployment, unspecified
CPT/HCPCS: 83036; 84132; 93005; 99291; G0480; J1200; J1630; J2060

== ENCOUNTER 2019-09-25 15:35 | Inpatient (IN) | payer MEDICAID, OTHER ==
[~2019-09-25] VITALS: Ht 172.7 cm; Wt 88.0 kg
[~2019-09-25 15:35] MED LIST changes: +BUPR-93 PO; -BUPR75 PO
[2019-09-25 16:59] LABS: BASOPHILS % (AUTO) 0.7 % (0.0-2.0); EOSINOPHILS % (AUTO) 0.1 % (1.0-6.0); HEMATOCRIT 46.1 % (41-53); HEMOGLOBIN 15.3 g/dL (13.5-17.5); MEAN CORPUSCULAR HEMOGLOBIN 30.9 pg (26.0-34.0); MEAN CORPUSCULAR HGB CONC 33.3 G/dL (31.0-37.0); MEAN CORPUSCULAR VOLUME 93 fL (80-100); MONOCYTES # (AUTO) 1.1 K/uL (0.1-1.0); MONOCYTES % (AUTO) 13.5 % (2.0-9.0); NEUTROPHILS # (AUTO) 4.7 K/uL (1.8-7.7); NEUTROPHILS % (AUTO) 59.7 % (40.0-70.0); PLATELET COUNT (AUTO) 353 K/uL (150-450); RED BLOOD CELL COUNT(AUTO) 4.96 MIL/uL (4.50-5.90); RED CELL DISTRIBUTION WIDTH 15.6 % (11.5-14.5)
[2019-09-25] MEDS ORDERED: DiphenhydrAMINE HCL 25 MG CAPSULE PO ONE (17:00)
[2019-09-25] MEDS ORDERED: HALOPERIDOL 5 MG TABLET PO PRN (17:00)
[2019-09-25] MEDS ORDERED: LORazepam 2 MG TABLET PO ONE (17:00)
[2019-09-25] MEDS ORDERED: HALOPERIDOL 5 MG TABLET PO ONE (17:00)
[2019-09-25 17:17] LABS: ALANINE AMINOTRANSFERASE 151 U/L (12-78); ALBUMIN 4.2 g/dL (3.4-5.0); ALKALINE PHOSPHATASE 69 U/L (46-116); ANION GAP 14 mmol/L (8-16); ASPARTATE AMINOTRANSFERASE 117 U/L (15-37); BILIRUBIN,TOTAL 0.7 mg/dL (0.1-1.0); CALCIUM, TOTAL 9.4 mg/dL (8.8-10.5); CARBON DIOXIDE 25 mmol/L (22-29); CHLORIDE 98 mmol/L (98-107); CREATININE 0.97 mg/dL (0.60-1.30); GLOMERULAR FILTR. RATE CALC > 60 mL/min (>60); GLUCOSE,RANDOM 68 mg/dL (70-110); SODIUM SERUM 137 mmol/L (136-145); TOTAL PROTEIN, SERUM 8.4 g/dL (6.4-8.2); UREA NITROGEN, BLOOD 18 mg/dL (7-18)
[2019-09-25 19:50] VITALS: BP 132/95
[2019-09-25] MEDS ORDERED: OMEPRAZOLE 20 MG CAPSULE PO PRN (20:00)
[2019-09-25] MEDS ORDERED: MAGNESIUM HYDROXIDE SUSPENSION 30 ML UDCUP PO PRN (20:00)
[2019-09-25] MEDS ORDERED: LOPERAMIDE HCL 2 MG CAPSULE PO PRN (20:00)
[2019-09-25] MEDS ORDERED: DOCUSATE SODIUM 100 MG CAPSULE PO PRN (20:00)
[2019-09-25] MEDS ORDERED: MAG HYDROX/AL HYDROX/SIMETH ES 30 ML SUSPENSION UDCUP PO PRN (20:00)
[2019-09-25] MEDS ORDERED: ONDANSETRON HCL 4 MG TABLET PO PRN (20:00)
[2019-09-25] MEDS ORDERED: IBUPROFEN 600 MG TABLET PO PRN (20:00)
[2019-09-25] MEDS ORDERED: CloNIDine HCL 0.1 MG TABLET PO PRN (20:00)
[2019-09-25] MEDS ORDERED: BACITRACIN 28.4 GM OINTMENT TP PRN (20:00)
[2019-09-25] MEDS ORDERED: ALBUTEROL SULFATE HFA 90 MCG/PUFF 8 GM INHALER IH PRN (20:00)
[2019-09-25] MEDS ORDERED: ACETAMINOPHEN 325 MG TABLET PO PRN (20:00)
[2019-09-25] MEDS ORDERED: PETROLATUM,WHITE 28 GM JELLY TP PRN (20:00)
[2019-09-25] MEDS ORDERED: BENZOCAINE/MENTHOL LOZENGE MM PRN (20:00)
[2019-09-25] MEDS ORDERED: INFLUENZA VIRUS VACCINE QVS 2019-20 (3YR+)/PF 60 MCG/0.5 ML SYRINGE IM ONE (20:45)
[2019-09-25] MEDS: LevETIRAcetam 500 MG TABLET PO SCH (21:27)
[2019-09-25] MEDS: OLANZapine 7.5 MG TABLET PO SCH (21:28)
[2019-09-26 06:37] VITALS: BP 114/73
[2019-09-26 08:33] VITALS: BP 131/77
[2019-09-26] MEDS: LevETIRAcetam 500 MG TABLET PO SCH ×2 (08:44→20:51)
[2019-09-26] MEDS: BuPROPion HCL XL 150 MG ER TABLET PO SCH (08:44)
[2019-09-26 16:15] VITALS: BP 123/73
[2019-09-26] MEDS: LORazepam 2 MG TABLET PO PRN (18:24)
[2019-09-26] MEDS: OLANZapine 7.5 MG TABLET PO SCH (20:52)
[2019-09-26] MEDS: ZOLPIDEM TARTRATE 10 MG TABLET PO PRN (20:52)
[2019-09-27 05:36] VITALS: BP 134/84
[2019-09-27 08:07] VITALS: BP 100/60
[2019-09-27] MEDS: BuPROPion HCL XL 150 MG ER TABLET PO SCH (08:32)
[2019-09-27] MEDS: LevETIRAcetam 500 MG TABLET PO SCH ×2 (08:32→21:29)
[2019-09-27 16:09] VITALS: BP 122/74
[2019-09-27] MEDS: LORazepam 2 MG TABLET PO PRN (17:55)
[2019-09-27] MEDS: OLANZapine 7.5 MG TABLET PO SCH (21:29)
[2019-09-27] MEDS: ZOLPIDEM TARTRATE 10 MG TABLET PO PRN (21:29)
[2019-09-28 04:11] VITALS: BP 135/85
[2019-09-28] MEDS: LevETIRAcetam 500 MG TABLET PO SCH (08:43)
[2019-09-28] MEDS: BuPROPion HCL XL 150 MG ER TABLET PO SCH (08:43)
== END 2019-09-28 10:12 | disposition home or self-care (01) | DRG 750 ==
LOC: EMS 15:37 → B3A 18:02
PROVIDERS: ADMIT Psychiatry & Neurology Psychiatry; ATTEND Psychiatry & Neurology Psychiatry
DX: F25.9 Schizoaffective disorder, unspecified (principal); G40.909 Epilepsy, unspecified, not intractable, without status epilepticus; R45.851 Suicidal ideations; F12.90 Cannabis use, unspecified, uncomplicated; F17.200 Nicotine dependence, unspecified, uncomplicated; K59.00 Constipation, unspecified; F41.9 Anxiety disorder, unspecified; Z59.0 Homelessness; Z79.899 Other long term (current) drug therapy; Z71.6 Tobacco abuse counseling
CPT/HCPCS: 87081; G0480

== ENCOUNTER 2020-01-12 09:02 | Emergency (ER) | payer MEDICAID, OTHER ==
[~2020-01-12] VITALS: Ht 172.7 cm; Wt 84.1 kg
[~2020-01-12 09:02] MED LIST changes: -GABA-531 PO
[2020-01-12 09:20] VITALS: BP 145/92
== END 2020-01-12 10:46 | disposition home or self-care (01) ==
LOC: EMS 09:06
DX: F20.9 Schizophrenia, unspecified (principal); F17.210 Nicotine dependence, cigarettes, uncomplicated; F15.90 Other stimulant use, unspecified, uncomplicated; F11.90 Opioid use, unspecified, uncomplicated; Z79.899 Other long term (current) drug therapy
CPT/HCPCS: Z7502

== ENCOUNTER 2020-09-29 07:22 | Inpatient (IN) | payer MEDICAID, OTHER ==
[~2020-09-29] VITALS: Ht 172.7 cm; Wt 93.6 kg
[2020-09-29 08:09] LABS: BASOPHILS % (AUTO) 1.2 % (0.0-2.0); EOSINOPHILS % (AUTO) 2.9 % (1.0-6.0); HEMATOCRIT 40.5 % (41-53); HEMOGLOBIN 13.6 g/dL (13.5-17.5); LYMPHOCYTES % (AUTO) 26.7 % (22.0-44.0); MEAN CORPUSCULAR HEMOGLOBIN 31.5 pg (26.0-34.0); MEAN CORPUSCULAR HGB CONC 33.6 G/dL (31.0-37.0); MEAN CORPUSCULAR VOLUME 94 fL (80-100); MONOCYTES # (AUTO) 1.2 K/uL (0.1-1.0); MONOCYTES % (AUTO) 15.2 % (2.0-9.0); NEUTROPHILS # (AUTO) 4.1 K/uL (1.8-7.7); PLATELET COUNT (AUTO) 358 K/uL (150-450); RED BLOOD CELL COUNT(AUTO) 4.32 MIL/uL (4.50-5.90); RED CELL DISTRIBUTION WIDTH 14.2 % (11.5-14.5)
[2020-09-29 08:18] LABS: ANION GAP 8 mmol/L (8-16); CALCIUM, TOTAL 8.1 mg/dL (8.8-10.5); CARBON DIOXIDE 27 mmol/L (22-29); CHLORIDE 104 mmol/L (98-107); GLOMERULAR FILTR. RATE CALC > 60 mL/min (>60); GLUCOSE,RANDOM 102 mg/dL (70-110); POTASSIUM 4.1 mmol/L (3.5-5.1); SODIUM SERUM 139 mmol/L (136-145); UREA NITROGEN, BLOOD 13 mg/dL (7-18)
[2020-09-29 08:23] LABS: ALANINE AMINOTRANSFERASE 77 U/L (12-78); ALBUMIN 3.4 g/dL (3.4-5.0); ALKALINE PHOSPHATASE 76 U/L (46-116); ASPARTATE AMINOTRANSFERASE 36 U/L (15-37); BILIRUBIN,TOTAL 0.3 mg/dL (0.1-1.0); TOTAL PROTEIN, SERUM 7.1 g/dL (6.4-8.2)
[2020-09-29] MEDS ORDERED: ACETAMINOPHEN 325 MG TABLET PO PRN (09:30)
[2020-09-29 10:28] LABS: COVID AG,FIA SOURCE NASOPHARYNGEAL
[2020-09-29 13:53] VITALS: BP 135/95
[2020-09-29] MEDS ORDERED: PNEUMOCOCCAL VACCINE POLYVALENT 0.5 ML VIAL [PPSV23] IM. ONE (14:15)
[2020-09-29 16:00] VITALS: BP 122/64
[2020-09-30 05:10] VITALS: BP 122/75
[2020-09-30 09:35] VITALS: BP 136/85
[2020-09-30] MEDS: NICOTINE 14 MG/24 HOUR PATCH TD SCH ×2 (10:27→10:28)
[2020-09-30] MEDS: BuPROPion HCL XL 150 MG ER TABLET PO SCH (13:15)
[2020-09-30] MEDS ORDERED: ONDANSETRON HCL 4 MG TABLET PO PRN (13:30)
[2020-09-30] MEDS ORDERED: MAG HYDROX/AL HYDROX/SIMETH ES 30 ML SUSPENSION UDCUP PO PRN (13:30)
[2020-09-30] MEDS ORDERED: LOPERAMIDE HCL 2 MG CAPSULE PO PRN (13:30)
[2020-09-30] MEDS ORDERED: DOCUSATE SODIUM 100 MG CAPSULE PO PRN (13:30)
[2020-09-30] MEDS ORDERED: IBUPROFEN 400 MG TABLET PO PRN (13:30)
[2020-09-30] MEDS ORDERED: GuaiFENesin/D-METHORPHAN [SUGAR-FREE] 200-20MG/10 ML SYRUP UDCUP PO PRN (13:30)
[2020-09-30] MEDS ORDERED: ALBUTEROL SULFATE HFA 90 MCG/PUFF 8 GM INHALER IH PRN (13:30)
[2020-09-30] MEDS ORDERED: PETROLATUM,WHITE 28 GM JELLY TP PRN (13:30)
[2020-09-30] MEDS ORDERED: MAGNESIUM HYDROXIDE SUSPENSION 30 ML UDCUP PO PRN (13:30)
[2020-09-30] MEDS ORDERED: ACETAMINOPHEN 325 MG TABLET PO PRN (13:30)
[2020-09-30] MEDS ORDERED: CloNIDine HCL 0.1 MG TABLET PO PRN (13:30)
[2020-09-30] MEDS: LORazepam 2 MG TABLET PO PRN (15:25)
[2020-09-30] MEDS: HALOPERIDOL 5 MG TABLET PO PRN (15:25)
[2020-09-30 16:30] VITALS: BP 119/92
[2020-09-30] MEDS: OLANZapine 10 MG TABLET PO SCH (21:00)
[2020-10-01 08:00] VITALS: BP 132/59
[2020-10-01] MEDS: BuPROPion HCL XL 150 MG ER TABLET PO SCH (08:17)
[2020-10-01] MEDS: HALOPERIDOL 5 MG TABLET PO PRN (08:18)
[2020-10-01] MEDS: LORazepam 2 MG TABLET PO PRN (08:18)
[2020-10-01 16:16] VITALS: BP 130/76
[2020-10-01] MEDS: OLANZapine 10 MG TABLET PO SCH (20:04)
[2020-10-02 08:00] VITALS: BP 150/97
[2020-10-02] MEDS: NICOTINE 14 MG/24 HOUR PATCH TD SCH (08:37)
[2020-10-02] MEDS: BuPROPion HCL XL 150 MG ER TABLET PO SCH (08:37)
[2020-10-02 16:08] VITALS: BP 110/70
[2020-10-02] MEDS: LORazepam 2 MG TABLET PO PRN (17:57)
[2020-10-02] MEDS: HALOPERIDOL 5 MG TABLET PO PRN (17:57)
[2020-10-02] MEDS: OLANZapine 10 MG TABLET PO SCH (22:20)
[2020-10-03 08:35] VITALS: BP 118/80
[2020-10-03] MEDS: BuPROPion HCL XL 150 MG ER TABLET PO SCH (09:00)
[2020-10-03] MEDS: NICOTINE 14 MG/24 HOUR PATCH TD SCH (09:00)
[2020-10-03 16:00] VITALS: BP 119/70
[2020-10-03] MEDS: LORazepam 2 MG TABLET PO PRN (17:15)
[2020-10-03] MEDS: HALOPERIDOL 5 MG TABLET PO PRN (17:25)
[2020-10-03] MEDS: OLANZapine 10 MG TABLET PO SCH (21:00)
[2020-10-04 08:00] VITALS: BP 122/82
[2020-10-04] MEDS: HALOPERIDOL 5 MG TABLET PO PRN (08:45)
[2020-10-04] MEDS: LORazepam 2 MG TABLET PO PRN ×2 (08:45→20:13)
[2020-10-04] MEDS: BuPROPion HCL XL 150 MG ER TABLET PO SCH (08:45)
[2020-10-04] MEDS: NICOTINE 14 MG/24 HOUR PATCH TD SCH (08:47)
[2020-10-04 20:07] VITALS: BP 116/85
[2020-10-04] MEDS: OLANZapine 10 MG TABLET PO SCH (20:11)
[2020-10-05 08:00] VITALS: BP 134/83
[2020-10-05] MEDS: HALOPERIDOL 5 MG TABLET PO PRN (09:02)
[2020-10-05] MEDS: BuPROPion HCL XL 150 MG ER TABLET PO SCH (09:02)
[2020-10-05] MEDS: NICOTINE 14 MG/24 HOUR PATCH TD SCH (09:02)
[2020-10-05] MEDS: LORazepam 2 MG TABLET PO PRN (09:02)
[2020-10-05] MEDS: OLANZapine 10 MG TABLET PO SCH (20:08)
[2020-10-06 00:18] VITALS: BP 123/83
[2020-10-06] MEDS: NICOTINE 14 MG/24 HOUR PATCH TD SCH (08:40)
[2020-10-06] MEDS: BuPROPion HCL XL 150 MG ER TABLET PO SCH (08:40)
[2020-10-06] MEDS: HALOPERIDOL 5 MG TABLET PO PRN (09:54)
[2020-10-06] MEDS: LORazepam 2 MG TABLET PO PRN ×3 (09:54→20:06)
[2020-10-06 10:43] LABS: COVID AG,FIA SOURCE NASOPHARYNGEAL
[2020-10-06] MEDS: OLANZapine 10 MG TABLET PO SCH (20:06)
[2020-10-07 08:00] VITALS: BP 110/68
[2020-10-07] MEDS: HALOPERIDOL 5 MG TABLET PO PRN (10:13)
[2020-10-07] MEDS: LORazepam 2 MG TABLET PO PRN (10:13)
[2020-10-07] MEDS: BuPROPion HCL XL 150 MG ER TABLET PO SCH (10:13)
[2020-10-07] MEDS: NICOTINE 14 MG/24 HOUR PATCH TD SCH (10:17)
[2020-10-07 16:01] VITALS: BP 101/64
[2020-10-07] MEDS: OLANZapine 10 MG TABLET PO SCH (20:43)
[2020-10-08] MEDS: LORazepam 2 MG TABLET PO PRN ×2 (11:11→15:53)
[2020-10-08] MEDS: HALOPERIDOL 5 MG TABLET PO PRN ×2 (11:11→15:53)
[2020-10-08] MEDS: BuPROPion HCL XL 150 MG ER TABLET PO SCH (11:11)
[2020-10-08] MEDS: NICOTINE 14 MG/24 HOUR PATCH TD SCH (11:12)
[2020-10-08 16:00] VITALS: BP 121/85
[2020-10-08] MEDS: OLANZapine 10 MG TABLET PO SCH (19:59)
[2020-10-09] MEDS: NICOTINE 14 MG/24 HOUR PATCH TD SCH (09:00)
[2020-10-09] MEDS: BuPROPion HCL XL 150 MG ER TABLET PO SCH (11:50)
[2020-10-09] MEDS: LORazepam 2 MG TABLET PO PRN (14:21)
[2020-10-09] MEDS: HALOPERIDOL 5 MG TABLET PO PRN (14:21)
[2020-10-09 16:00] VITALS: BP 118/78
[2020-10-09] MEDS: OLANZapine 10 MG TABLET PO SCH (21:21)
[2020-10-10] MEDS: HALOPERIDOL 5 MG TABLET PO PRN (08:11)
[2020-10-10] MEDS: NICOTINE 14 MG/24 HOUR PATCH TD SCH (08:11)
[2020-10-10] MEDS: LORazepam 2 MG TABLET PO PRN (08:11)
[2020-10-10] MEDS: BuPROPion HCL XL 150 MG ER TABLET PO SCH (08:12)
[2020-10-10 08:52] VITALS: BP 128/82
[2020-10-10] MEDS ORDERED: OLAN10TA3 PO (11:37)
== END 2020-10-10 12:55 | disposition home or self-care (01) | DRG 750 ==
LOC: EMS 07:26 → 3EI 10:17 → 3EC 10-03 19:00
PROVIDERS: ADMIT Psychiatry & Neurology Child & Adolescent Psychiatry; ATTEND Psychiatry & Neurology Child & Adolescent Psychiatry
DX: F20.9 Schizophrenia, unspecified (principal); G40.909 Epilepsy, unspecified, not intractable, without status epilepticus; R45.851 Suicidal ideations; F10.10 Alcohol abuse, uncomplicated; F17.200 Nicotine dependence, unspecified, uncomplicated; F43.10 Post-traumatic stress disorder, unspecified; I10 Essential (primary) hypertension; Z20.822 Contact with and (suspected) exposure to COVID-19; J44.9 Chronic obstructive pulmonary disease, unspecified; Z81.8 Family history of other mental and behavioral disorders
CPT/HCPCS: 80053; 85025; 87426; 99285; G0480

== ENCOUNTER 2020-10-25 07:19 | Emergency (ER) | payer MEDICAID ==
[~2020-10-25] VITALS: Ht 170.2 cm; Wt 81.8 kg
[~2020-10-25 07:19] MED LIST changes: -LEVE500T53 PO; +OLAN10TA74 PO; -OLAN7.5T2 PO
[2020-10-25 07:22] VITALS: BP 123/72
[2020-10-25 07:56] LABS: BASOPHILS % (AUTO) 0.8 % (0.0-2.0); EOSINOPHILS % (AUTO) 1.5 % (1.0-6.0); HEMATOCRIT 43.2 % (41-53); HEMOGLOBIN 14.7 g/dL (13.5-17.5); LYMPHOCYTES % (AUTO) 31.3 % (22.0-44.0); MEAN CORPUSCULAR HEMOGLOBIN 31.5 pg (26.0-34.0); MEAN CORPUSCULAR HGB CONC 34.1 G/dL (31.0-37.0); MEAN CORPUSCULAR VOLUME 93 fL (80-100); MONOCYTES % (AUTO) 15.1 % (2.0-9.0); NEUTROPHILS # (AUTO) 3.3 K/uL (1.8-7.7); NEUTROPHILS % (AUTO) 51.3 % (40.0-70.0); PLATELET COUNT (AUTO) 346 K/uL (150-450); RED BLOOD CELL COUNT(AUTO) 4.67 MIL/uL (4.50-5.90); RED CELL DISTRIBUTION WIDTH 14.7 % (11.5-14.5)
[2020-10-25 08:05] LABS: ANION GAP 14 mmol/L (8-16); CALCIUM, TOTAL 8.1 mg/dL (8.8-10.5); CARBON DIOXIDE 27 mmol/L (22-29); CHLORIDE 106 mmol/L (98-107); CREATININE 0.87 mg/dL (0.60-1.30); GLOMERULAR FILTR. RATE CALC > 60 mL/min (>60); GLUCOSE,RANDOM 103 mg/dL (70-110); POTASSIUM 4.1 mmol/L (3.5-5.1); SODIUM SERUM 147 mmol/L (136-145); UREA NITROGEN, BLOOD 14 mg/dL (7-18)
[2020-10-25 08:11] LABS: ALANINE AMINOTRANSFERASE 100 U/L (12-78); ALBUMIN 3.3 g/dL (3.4-5.0); ALKALINE PHOSPHATASE 90 U/L (46-116); ASPARTATE AMINOTRANSFERASE 74 U/L (15-37); BILIRUBIN,TOTAL 0.4 mg/dL (0.1-1.0); TOTAL PROTEIN, SERUM 7.4 g/dL (6.4-8.2)
[2020-10-25] MEDS ORDERED: OLANZapine 5 MG TABLET PO ONE (09:15)
[2020-10-25] MEDS ORDERED: LORazepam 1 MG TABLET PO ONE (09:15)
== END 2020-10-25 09:31 | disposition home or self-care (01) ==
LOC: EMS 07:23
DX: S05.12XA Contusion of eyeball and orbital tissues, left eye, initial encounter (principal); F25.9 Schizoaffective disorder, unspecified; F32.9 Major depressive disorder, single episode, unspecified; F41.9 Anxiety disorder, unspecified; I10 Essential (primary) hypertension; F11.90 Opioid use, unspecified, uncomplicated; F15.90 Other stimulant use, unspecified, uncomplicated; F17.210 Nicotine dependence, cigarettes, uncomplicated; Z79.899 Other long term (current) drug therapy; X58.XXXA Exposure to other specified factors, initial encounter; Y93.89 Activity, other specified; Y92.89 Other specified places as the place of occurrence of the external cause; Y99.8 Other external cause status
CPT/HCPCS: 36415; 80053; 85025; 99284; G0480; 99285

== ENCOUNTER 2020-12-24 07:42 | Inpatient (IN) | payer MEDICAID, OTHER ==
[~2020-12-24] VITALS: Ht 172.7 cm; Wt 91.5 kg
[2020-12-24 12:23] LABS: BASOPHILS % (AUTO) 1.1 % (0.0-2.0); EOSINOPHILS % (AUTO) 4.7 % (1.0-6.0); HEMATOCRIT 44.4 % (41-53); LYMPHOCYTES # (AUTO) 2.2 K/uL (1.0-4.8); LYMPHOCYTES % (AUTO) 29.8 % (22.0-44.0); MEAN CORPUSCULAR HEMOGLOBIN 31.8 pg (26.0-34.0); MEAN CORPUSCULAR HGB CONC 33.8 G/dL (31.0-37.0); MEAN CORPUSCULAR VOLUME 94 fL (80-100); MONOCYTES # (AUTO) 1.2 K/uL (0.1-1.0); MONOCYTES % (AUTO) 15.9 % (2.0-9.0); NEUTROPHILS # (AUTO) 3.6 K/uL (1.8-7.7); NEUTROPHILS % (AUTO) 48.5 % (40.0-70.0); PLATELET COUNT (AUTO) 287 K/uL (150-450); RED BLOOD CELL COUNT(AUTO) 4.72 MIL/uL (4.50-5.90); RED CELL DISTRIBUTION WIDTH 15.2 % (11.5-14.5)
[2020-12-24 12:24] LABS: ANION GAP 9 mmol/L (8-16); CALCIUM, TOTAL 8.1 mg/dL (8.8-10.5); CARBON DIOXIDE 27 mmol/L (22-29); CHLORIDE 103 mmol/L (98-107); CREATININE 0.81 mg/dL (0.60-1.30); GLOMERULAR FILTR. RATE CALC > 60 mL/min (>60); GLUCOSE,RANDOM 102 mg/dL (70-110); POTASSIUM 3.6 mmol/L (3.5-5.1); SODIUM SERUM 139 mmol/L (136-145); UREA NITROGEN, BLOOD 12 mg/dL (7-18)
[2020-12-24 12:30] LABS: ALANINE AMINOTRANSFERASE 319 U/L (12-78); ALBUMIN 3.5 g/dL (3.4-5.0); ALKALINE PHOSPHATASE 78 U/L (46-116); ASPARTATE AMINOTRANSFERASE 127 U/L (15-37); BILIRUBIN,TOTAL 0.8 mg/dL (0.1-1.0); TOTAL PROTEIN, SERUM 7.8 g/dL (6.4-8.2)
[2020-12-24] MEDS ORDERED: HALOPERIDOL 5 MG TABLET PO PRN (12:45)
[2020-12-24 13:07] LABS: COVID AG,FIA SOURCE NASOPHARYNGEAL
[2020-12-24 14:27] VITALS: BP 132/83
[2020-12-24 16:58] VITALS: BP 145/95
[2020-12-24] MEDS ORDERED: ALBUTEROL SULFATE HFA 90 MCG/PUFF 8 GM INHALER IH PRN (19:30)
[2020-12-24] MEDS ORDERED: PETROLATUM,WHITE 28 GM JELLY TP PRN (19:30)
[2020-12-24] MEDS ORDERED: NICOTINE 14 MG/24 HOUR PATCH TD PRN (19:30)
[2020-12-24] MEDS ORDERED: ONDANSETRON HCL 4 MG TABLET PO PRN (19:30)
[2020-12-24] MEDS ORDERED: MAGNESIUM HYDROXIDE SUSPENSION 30 ML UDCUP PO PRN (19:30)
[2020-12-24] MEDS ORDERED: DOCUSATE SODIUM 100 MG CAPSULE PO PRN (19:30)
[2020-12-24] MEDS ORDERED: CloNIDine HCL 0.1 MG TABLET PO PRN (19:30)
[2020-12-24] MEDS ORDERED: GuaiFENesin/D-METHORPHAN [SUGAR-FREE] 200-20MG/10 ML SYRUP UDCUP PO PRN (19:30)
[2020-12-24] MEDS ORDERED: LOPERAMIDE HCL 2 MG CAPSULE PO PRN (19:30)
[2020-12-24] MEDS ORDERED: MAG HYDROX/AL HYDROX/SIMETH ES 30 ML SUSPENSION UDCUP PO PRN (19:30)
[2020-12-24] MEDS: LORazepam 2 MG TABLET PO PRN (19:31)
[2020-12-24] MEDS: ACETAMINOPHEN 325 MG TABLET PO PRN (19:31)
[2020-12-24] MEDS: ZOLPIDEM TARTRATE 10 MG TABLET PO PRN (21:19)
[2020-12-25] MEDS: LORazepam 2 MG TABLET PO PRN (01:16)
[2020-12-25] MEDS: IBUPROFEN 400 MG TABLET PO PRN (01:17)
[2020-12-25 01:24] VITALS: BP 149/84
[2020-12-25 08:11] VITALS: BP 142/81
[2020-12-25 11:02] LABS: CHOL/HDL RATIO 3.7 (4.2-7.3)
[2020-12-25 12:56] LABS: FREE T4 (FREE THYROXINE) 0.91 ng/dL (0.76-1.46)
[2020-12-25] MEDS: BuPROPion HCL XL 150 MG ER TABLET PO SCH (14:35)
[2020-12-25 15:18] LABS: APPEARANCE,URINE CLEAR (CLEAR); BILIRUBIN,URINE NEGATIVE (NEGATIVE); GLUCOSE, URINE (UA) NEGATIVE (NEGATIVE); KETONES,URINE NEGATIVE (NEGATIVE); LEUKOCYTE ESTERASE ,URINE NEGATIVE (NEGATIVE); NITRATE,URINE NEGATIVE (NEGATIVE); OCCULT BLOOD,URINE NEGATIVE (NEGATIVE); PROTEIN,URINE NEGATIVE (NEGATIVE)
[2020-12-25 15:24] LABS: AMPHET/METH SCREEN,URINE NEGATIVE (NEGATIVE); BARBITURATE SCREEN, URINE NEGATIVE (NEGATIVE); BENZODIAZEPINES SCREEN,URINE NEGATIVE (NEGATIVE); CANNABINOID SCREEN,URINE NEGATIVE (NEGATIVE); COCAINE SCREEN,URINE NEGATIVE (NEGATIVE); METHADONE SCREEN, URINE NEGATIVE (NEGATIVE); OPIATE SCREEN,URINE NEGATIVE (NEGATIVE)
[2020-12-25 15:26] LABS: PHENCYCLIDINE SCREEN,URINE NEGATIVE (NEGATIVE)
[2020-12-25 16:03] VITALS: BP 169/94
[2020-12-25] MEDS: OLANZapine 10 MG TABLET PO SCH (20:19)
[2020-12-25] MEDS: ZOLPIDEM TARTRATE 10 MG TABLET PO PRN (20:31)
[2020-12-26] MEDS: BuPROPion HCL XL 150 MG ER TABLET PO SCH (08:05)
[2020-12-26 09:10] VITALS: BP 141/83
[2020-12-26 16:17] VITALS: BP 131/79
[2020-12-26 16:21] VITALS: BP 132/80
[2020-12-26] MEDS: ACETAMINOPHEN 325 MG TABLET PO PRN (16:21)
[2020-12-26 17:21] VITALS: BP 134/80
[2020-12-26] MEDS: OLANZapine 10 MG TABLET PO SCH (20:32)
[2020-12-26] MEDS: ZOLPIDEM TARTRATE 10 MG TABLET PO PRN (21:50)
[2020-12-27] MEDS: IBUPROFEN 400 MG TABLET PO PRN ×2 (00:31→11:08)
[2020-12-27 00:35] VITALS: BP 126/86
[2020-12-27 09:23] VITALS: BP 110/60
[2020-12-27] MEDS: BuPROPion HCL XL 150 MG ER TABLET PO SCH (09:36)
[2020-12-27 16:50] VITALS: BP 115/68
[2020-12-27 18:01] VITALS: BP 118/70
[2020-12-27] MEDS: ACETAMINOPHEN 325 MG TABLET PO PRN (18:01)
[2020-12-27 19:01] VITALS: BP 115/65
[2020-12-27] MEDS: OLANZapine 10 MG TABLET PO SCH (20:24)
[2020-12-27] MEDS: ZOLPIDEM TARTRATE 10 MG TABLET PO PRN (20:40)
[2020-12-28 01:19] VITALS: BP 124/86
[2020-12-28 02:17] VITALS: BP 120/72
[2020-12-28] MEDS: IBUPROFEN 400 MG TABLET PO PRN ×3 (02:17→22:37)
[2020-12-28] MEDS: BuPROPion HCL XL 150 MG ER TABLET PO SCH (08:48)
[2020-12-28 12:26] VITALS: BP 121/72
[2020-12-28] MEDS: LORazepam 2 MG TABLET PO PRN (17:50)
[2020-12-28] MEDS: ZOLPIDEM TARTRATE 10 MG TABLET PO PRN (20:03)
[2020-12-28] MEDS: OLANZapine 10 MG TABLET PO SCH (20:03)
[2020-12-28 22:37] VITALS: BP 112/74
[2020-12-29 01:09] VITALS: BP 127/76
[2020-12-29 08:40] VITALS: BP 164/96
[2020-12-29] MEDS: BuPROPion HCL XL 150 MG ER TABLET PO SCH (08:42)
[2020-12-29] MEDS: IBUPROFEN 400 MG TABLET PO PRN ×2 (08:43→17:27)
[2020-12-29 08:44] VITALS: BP 154/96
[2020-12-29 16:00] VITALS: BP 130/77
[2020-12-29 17:27] VITALS: BP 135/76
[2020-12-29 18:27] VITALS: BP 134/80
[2020-12-29] MEDS: OLANZapine 10 MG TABLET PO SCH (20:02)
[2020-12-29] MEDS: ZOLPIDEM TARTRATE 10 MG TABLET PO PRN (20:02)
[2020-12-30] MEDS: IBUPROFEN 400 MG TABLET PO PRN ×2 (03:22→16:02)
[2020-12-30] MEDS: BuPROPion HCL XL 150 MG ER TABLET PO SCH (08:18)
[2020-12-30 08:55] VITALS: BP 139/91
[2020-12-30 16:02] VITALS: BP 124/81
[2020-12-30 16:06] VITALS: BP 124/81
[2020-12-30 17:02] VITALS: BP 130/76
[2020-12-30] MEDS: OLANZapine 10 MG TABLET PO SCH (20:01)
[2020-12-30] MEDS: ZOLPIDEM TARTRATE 10 MG TABLET PO PRN (20:02)
[2020-12-31 09:47] VITALS: BP 135/69
[2020-12-31] MEDS: BuPROPion HCL XL 150 MG ER TABLET PO SCH (10:07)
[2020-12-31] MEDS: LORazepam 2 MG TABLET PO PRN (11:26)
[2020-12-31 16:28] VITALS: BP 110/78
[2020-12-31 19:52] LABS: COVID AG,FIA SOURCE NASAL SWAB
[2020-12-31] MEDS: OLANZapine 10 MG TABLET PO SCH (20:02)
[2020-12-31] MEDS: ZOLPIDEM TARTRATE 10 MG TABLET PO PRN (20:03)
[2021-01-01] MEDS: BuPROPion HCL XL 150 MG ER TABLET PO SCH (08:10)
[2021-01-01 08:51] VITALS: BP 128/83
[2021-01-01 18:44] VITALS: BP 131/86
[2021-01-01] MEDS: IBUPROFEN 400 MG TABLET PO PRN (18:44)
[2021-01-01 19:44] VITALS: BP 132/79
[2021-01-01] MEDS: OLANZapine 10 MG TABLET PO SCH (21:24)
[2021-01-01] MEDS: ZOLPIDEM TARTRATE 10 MG TABLET PO PRN (21:24)
[2021-01-02] MEDS: BuPROPion HCL XL 150 MG ER TABLET PO SCH (08:28)
[2021-01-02 09:10] VITALS: BP 132/83
[2021-01-02 16:00] VITALS: BP 122/77
[2021-01-02] MEDS: LORazepam 2 MG TABLET PO PRN (16:08)
[2021-01-02] MEDS: IBUPROFEN 400 MG TABLET PO PRN (19:00)
[2021-01-02] MEDS: OLANZapine 10 MG TABLET PO SCH (20:03)
[2021-01-02] MEDS: ZOLPIDEM TARTRATE 10 MG TABLET PO PRN (20:17)
[2021-01-03] MEDS: BuPROPion HCL XL 150 MG ER TABLET PO SCH (08:03)
[2021-01-03 16:00] VITALS: BP 129/81
[2021-01-03] MEDS: IBUPROFEN 400 MG TABLET PO PRN (16:00)
[2021-01-03 17:00] VITALS: BP 125/75
[2021-01-03] MEDS: OLANZapine 10 MG TABLET PO SCH (20:11)
[2021-01-03] MEDS: ZOLPIDEM TARTRATE 10 MG TABLET PO PRN (20:33)
[2021-01-04] MEDS: BuPROPion HCL XL 150 MG ER TABLET PO SCH (07:54)
[2021-01-04 08:20] VITALS: BP 137/53
[2021-01-04] MEDS: LORazepam 2 MG TABLET PO PRN (11:22)
[2021-01-04] MEDS: OLANZapine 10 MG TABLET PO SCH (20:00)
[2021-01-04] MEDS: IBUPROFEN 400 MG TABLET PO PRN (20:02)
[2021-01-05 08:00] VITALS: BP 105/54
[2021-01-05] MEDS: BuPROPion HCL XL 150 MG ER TABLET PO SCH (08:01)
[2021-01-05] MEDS: IBUPROFEN 400 MG TABLET PO PRN (10:39)
[2021-01-05 10:42] VITALS: BP 134/66
[2021-01-05] MEDS: LORazepam 2 MG TABLET PO PRN (15:10)
[2021-01-05 16:15] VITALS: BP 125/87
[2021-01-05] MEDS: ZOLPIDEM TARTRATE 10 MG TABLET PO PRN (20:56)
[2021-01-05] MEDS: OLANZapine 10 MG TABLET PO SCH (20:56)
[2021-01-06 00:23] VITALS: BP 130/84
[2021-01-06] MEDS: BuPROPion HCL XL 150 MG ER TABLET PO SCH (08:13)
[2021-01-06 08:16] VITALS: BP 109/73
[2021-01-06] MEDS: LORazepam 2 MG TABLET PO PRN (09:47)
[2021-01-06] MEDS ORDERED: BUPR-93 PO (10:36)
== END 2021-01-06 15:10 | disposition home or self-care (01) | DRG 750 ==
LOC: EMS 07:47 → 3EI 12:50
PROVIDERS: ADMIT Psychiatry & Neurology Psychiatry; ATTEND Psychiatry & Neurology Psychiatry
DX: F25.1 Schizoaffective disorder, depressive type (principal); R45.851 Suicidal ideations; R74.01 Elevation of levels of liver transaminase levels; F43.10 Post-traumatic stress disorder, unspecified; I10 Essential (primary) hypertension; J44.9 Chronic obstructive pulmonary disease, unspecified; F99 Mental disorder, not otherwise specified; F32.9 Major depressive disorder, single episode, unspecified; Z20.822 Contact with and (suspected) exposure to COVID-19; F41.9 Anxiety disorder, unspecified; Z87.891 Personal history of nicotine dependence; Z79.899 Other long term (current) drug therapy
CPT/HCPCS: 80053; 80061; 80307; 81003; 83036; 84439; 84443; 85025; 99285; G0480

== ENCOUNTER 2021-03-10 09:06 | Inpatient (IN) | payer MEDICAID, OTHER ==
[~2021-03-10] VITALS: Ht 172.7 cm; Wt 85.1 kg
[2021-03-10 09:46] LABS: BASOPHILS % (AUTO) 0.9 % (0.0-2.0); HEMATOCRIT 42.1 % (41-53); LYMPHOCYTES # (AUTO) 1.2 K/uL (1.0-4.8); LYMPHOCYTES % (AUTO) 24.8 % (22.0-44.0); MEAN CORPUSCULAR HEMOGLOBIN 31.9 pg (26.0-34.0); MEAN CORPUSCULAR HGB CONC 33.3 G/dL (31.0-37.0); MEAN CORPUSCULAR VOLUME 96 fL (80-100); MONOCYTES # (AUTO) 0.7 K/uL (0.1-1.0); MONOCYTES % (AUTO) 15.5 % (2.0-9.0); NEUTROPHILS # (AUTO) 2.7 K/uL (1.8-7.7); NEUTROPHILS % (AUTO) 57.8 % (40.0-70.0); PLATELET COUNT (AUTO) 321 K/uL (150-450)
[2021-03-10 09:56] LABS: ANION GAP 6 mmol/L (8-16); CALCIUM, TOTAL 8.3 mg/dL (8.8-10.5); CARBON DIOXIDE 30 mmol/L (22-29); CHLORIDE 104 mmol/L (98-107); CREATININE 0.73 mg/dL (0.60-1.30); GLOMERULAR FILTR. RATE CALC > 60 mL/min (>60); GLUCOSE,RANDOM 90 mg/dL (70-110); POTASSIUM 4.5 mmol/L (3.5-5.1); SODIUM SERUM 140 mmol/L (136-145); UREA NITROGEN, BLOOD 11 mg/dL (7-18)
[2021-03-10 10:02] LABS: ALANINE AMINOTRANSFERASE 82 U/L (12-78); ALBUMIN 3.1 g/dL (3.4-5.0); ALKALINE PHOSPHATASE 71 U/L (46-116); ASPARTATE AMINOTRANSFERASE 133 U/L (15-37); BILIRUBIN,TOTAL 0.6 mg/dL (0.1-1.0); TOTAL PROTEIN, SERUM 7.4 g/dL (6.4-8.2)
[2021-03-10] MEDS ORDERED: OLANZapine 5 MG RAPDIS TABLET PO PRN (11:00)
[2021-03-10 11:51] LABS: COVID AG,FIA SOURCE NASOPHARYNGEAL
[2021-03-10 16:25] VITALS: BP 142/77
[2021-03-11 03:04] VITALS: BP 128/77
[2021-03-11 08:16] LABS: FREE T4 (FREE THYROXINE) 0.87 ng/dL (0.76-1.46); THYROID STIMULATING HORMONE 2.37 uIU/mL (0.36-3.74)
[2021-03-11] MEDS: BuPROPion HCL XL 150 MG ER TABLET PO SCH (12:52)
[2021-03-11] MEDS: OLANZapine 10 MG TABLET PO SCH ×2 (12:52→20:17)
[2021-03-11] MEDS ORDERED: NICOTINE 14 MG/24 HOUR PATCH TD PRN (15:15)
[2021-03-11] MEDS ORDERED: GuaiFENesin/D-METHORPHAN [SUGAR-FREE] 200-20MG/10 ML SYRUP UDCUP PO PRN (15:15)
[2021-03-11] MEDS ORDERED: ALBUTEROL SULFATE HFA 90 MCG/PUFF 8 GM INHALER IH PRN (15:15)
[2021-03-11] MEDS ORDERED: PETROLATUM,WHITE 28 GM JELLY TP PRN (15:15)
[2021-03-11] MEDS ORDERED: ONDANSETRON HCL 4 MG TABLET PO PRN (15:15)
[2021-03-11] MEDS ORDERED: LOPERAMIDE HCL 2 MG CAPSULE PO PRN (15:15)
[2021-03-11] MEDS ORDERED: MAG HYDROX/AL HYDROX/SIMETH ES 30 ML SUSPENSION UDCUP PO PRN (15:15)
[2021-03-11] MEDS ORDERED: IBUPROFEN 400 MG TABLET PO PRN (15:15)
[2021-03-11] MEDS ORDERED: MAGNESIUM HYDROXIDE SUSPENSION 30 ML UDCUP PO PRN (15:15)
[2021-03-11] MEDS ORDERED: CloNIDine HCL 0.1 MG TABLET PO PRN (15:15)
[2021-03-11] MEDS ORDERED: DOCUSATE SODIUM 100 MG CAPSULE PO PRN (15:15)
[2021-03-11] MEDS ORDERED: ACETAMINOPHEN 325 MG TABLET PO PRN (15:15)
[2021-03-11 16:10] VITALS: BP 146/83
[2021-03-11] MEDS: ZOLPIDEM TARTRATE 10 MG TABLET PO PRN (20:27)
[2021-03-12 01:38] VITALS: BP 138/79
[2021-03-12 08:19] LABS: BILIRUBIN,URINE NEGATIVE (NEGATIVE); GLUCOSE, URINE (UA) NEGATIVE (NEGATIVE); KETONES,URINE NEGATIVE (NEGATIVE); LEUKOCYTE ESTERASE ,URINE NEGATIVE (NEGATIVE); NITRATE,URINE NEGATIVE (NEGATIVE); OCCULT BLOOD,URINE NEGATIVE (NEGATIVE); PROTEIN,URINE NEGATIVE (NEGATIVE); UROBILINOGEN,URINE 0.2 mg/dL (<=1.0)
[2021-03-12 08:21] LABS: APPEARANCE,URINE SLIGHTLY CLOUDY (CLEAR)
[2021-03-12 08:25] LABS: AMPHET/METH SCREEN,URINE NEGATIVE (NEGATIVE); BARBITURATE SCREEN, URINE NEGATIVE (NEGATIVE); BENZODIAZEPINES SCREEN,URINE POSITIVE (NEGATIVE); CANNABINOID SCREEN,URINE NEGATIVE (NEGATIVE); COCAINE SCREEN,URINE NEGATIVE (NEGATIVE); METHADONE SCREEN, URINE NEGATIVE (NEGATIVE); OPIATE SCREEN,URINE NEGATIVE (NEGATIVE)
[2021-03-12 08:31] LABS: PHENCYCLIDINE SCREEN,URINE NEGATIVE (NEGATIVE)
[2021-03-12] MEDS: OLANZapine 10 MG TABLET PO SCH ×2 (09:11→20:39)
[2021-03-12] MEDS: BuPROPion HCL XL 150 MG ER TABLET PO SCH (09:11)
[2021-03-12 16:42] VITALS: BP 130/77
[2021-03-12] MEDS: ZOLPIDEM TARTRATE 10 MG TABLET PO PRN (20:50)
[2021-03-13 01:29] VITALS: BP 130/76
[2021-03-13] MEDS: BuPROPion HCL XL 150 MG ER TABLET PO SCH (08:49)
[2021-03-13] MEDS: OLANZapine 10 MG TABLET PO SCH ×2 (08:53→20:32)
[2021-03-13] MEDS: ZOLPIDEM TARTRATE 10 MG TABLET PO PRN (20:32)
[2021-03-14 04:10] VITALS: BP 135/78
[2021-03-14] MEDS: BuPROPion HCL XL 150 MG ER TABLET PO SCH (08:26)
[2021-03-14] MEDS: OLANZapine 10 MG TABLET PO SCH ×2 (08:26→20:13)
[2021-03-14 08:33] VITALS: BP 112/71
[2021-03-14 16:22] VITALS: BP 113/73
[2021-03-14] MEDS: ZOLPIDEM TARTRATE 10 MG TABLET PO PRN (21:09)
[2021-03-15 00:37] VITALS: BP 104/71
[2021-03-15 07:23] LABS: COVID AG,FIA SOURCE NASOPHARYNGEAL
[2021-03-15] MEDS: OLANZapine 10 MG TABLET PO SCH ×2 (08:36→20:16)
[2021-03-15] MEDS: BuPROPion HCL XL 150 MG ER TABLET PO SCH (08:37)
[2021-03-15 08:49] VITALS: BP 137/85
[2021-03-15] MEDS: LORazepam 2 MG TABLET PO PRN ×2 (09:15→16:33)
[2021-03-15 16:12] VITALS: BP 113/82
[2021-03-15] MEDS: ZOLPIDEM TARTRATE 10 MG TABLET PO PRN (20:19)
[2021-03-16 05:15] VITALS: BP 123/86
[2021-03-16 08:18] VITALS: BP 107/69
[2021-03-16] MEDS: BuPROPion HCL XL 150 MG ER TABLET PO SCH (08:38)
[2021-03-16] MEDS: OLANZapine 10 MG TABLET PO SCH (08:38)
[2021-03-16] MEDS ORDERED: OLAN10TA74 PO ×2 (11:44)
== END 2021-03-16 13:00 | disposition home or self-care (01) | DRG 750 ==
LOC: EMS 09:28 → B2S 11:01
PROVIDERS: ADMIT Psychiatry & Neurology Child & Adolescent Psychiatry; ATTEND Psychiatry & Neurology Child & Adolescent Psychiatry
DX: F25.1 Schizoaffective disorder, depressive type (principal); R45.851 Suicidal ideations; Z59.00 Homelessness unspecified; F10.10 Alcohol abuse, uncomplicated; F17.200 Nicotine dependence, unspecified, uncomplicated; F43.10 Post-traumatic stress disorder, unspecified; I10 Essential (primary) hypertension; J44.9 Chronic obstructive pulmonary disease, unspecified; F11.90 Opioid use, unspecified, uncomplicated; F41.9 Anxiety disorder, unspecified; Z20.822 Contact with and (suspected) exposure to COVID-19; Z91.14 Patient's other noncompliance with medication regimen; Z79.899 Other long term (current) drug therapy
CPT/HCPCS: 80053; 80061; 81003; 84439; 84443; 85025; 99285; G0480

== ENCOUNTER 2021-05-31 00:55 | Emergency (ER) | payer MEDICAID, OTHER ==
[~2021-05-31] VITALS: Ht 172.7 cm; Wt 84.0 kg
[2021-05-31 02:05] LABS: HEMOGLOBIN 14.3 g/dL (13.5-17.5); LYMPHOCYTES # (AUTO) 2.6 K/uL (1.0-4.8); MEAN CORPUSCULAR HEMOGLOBIN 31.8 pg (26.0-34.0); MEAN CORPUSCULAR HGB CONC 34.9 G/dL (31.0-37.0); MEAN CORPUSCULAR VOLUME 91 fL (80-100); MONOCYTES # (AUTO) 0.7 K/uL (0.1-1.0); MONOCYTES % (AUTO) 10.7 % (2.0-9.0); NEUTROPHILS # (AUTO) 3.3 K/uL (1.8-7.7); NEUTROPHILS % (AUTO) 48.3 % (40.0-70.0); PLATELET COUNT (AUTO) 277 K/uL (150-450); RED BLOOD CELL COUNT(AUTO) 4.49 MIL/uL (4.50-5.90); RED CELL DISTRIBUTION WIDTH 15.4 % (11.5-14.5)
[2021-05-31 02:28] LABS: ALANINE AMINOTRANSFERASE 38 U/L (12-78); ALKALINE PHOSPHATASE 100 U/L (46-116); ANION GAP 7 mmol/L (8-16); ASPARTATE AMINOTRANSFERASE 40 U/L (15-37); BILIRUBIN,TOTAL 0.3 mg/dL (0.1-1.0); CALCIUM, TOTAL 8.3 mg/dL (8.8-10.5); CARBON DIOXIDE 28 mmol/L (22-29); CHLORIDE 105 mmol/L (98-107); CREATININE 0.93 mg/dL (0.60-1.30); GLOMERULAR FILTR. RATE CALC > 60 mL/min (>60); GLUCOSE,RANDOM 110 mg/dL (70-110); POTASSIUM 3.8 mmol/L (3.5-5.1); SODIUM SERUM 140 mmol/L (136-145); TOTAL PROTEIN, SERUM 6.9 g/dL (6.4-8.2); UREA NITROGEN, BLOOD 17 mg/dL (7-18)
[2021-05-31] MEDS ORDERED: ZOLPIDEM TARTRATE 10 MG TABLET PO PRN (03:45)
[2021-05-31] MEDS ORDERED: LORazepam 2 MG TABLET PO PRN (03:45)
[2021-05-31] MEDS ORDERED: HALOPERIDOL 5 MG TABLET PO PRN (03:45)
[2021-05-31 04:48] LABS: COVID AG,FIA SOURCE NASOPHARYNGEAL
[2021-05-31 04:58] LABS: APPEARANCE,URINE CLEAR (CLEAR); BILIRUBIN,URINE NEGATIVE (NEGATIVE); GLUCOSE, URINE (UA) NEGATIVE (NEGATIVE); KETONES,URINE NEGATIVE (NEGATIVE); LEUKOCYTE ESTERASE ,URINE NEGATIVE (NEGATIVE); NITRATE,URINE NEGATIVE (NEGATIVE); OCCULT BLOOD,URINE NEGATIVE (NEGATIVE); PROTEIN,URINE NEGATIVE (NEGATIVE); UROBILINOGEN,URINE 0.2 mg/dL (<=1.0)
[2021-05-31 05:03] LABS: AMPHET/METH SCREEN,URINE POSITIVE (NEGATIVE); BARBITURATE SCREEN, URINE NEGATIVE (NEGATIVE); BENZODIAZEPINES SCREEN,URINE NEGATIVE (NEGATIVE); CANNABINOID SCREEN,URINE NEGATIVE (NEGATIVE); COCAINE SCREEN,URINE POSITIVE (NEGATIVE); METHADONE SCREEN, URINE NEGATIVE (NEGATIVE); OPIATE SCREEN,URINE NEGATIVE (NEGATIVE); PHENCYCLIDINE SCREEN,URINE NEGATIVE (NEGATIVE)
[2021-05-31 08:18] VITALS: BP 140/80
== END 2021-05-31 08:34 | disposition admitted as inpatient to this hospital (09) ==
LOC: EMS 00:55
DX: F25.1 Schizoaffective disorder, depressive type (principal); R45.851 Suicidal ideations; F41.9 Anxiety disorder, unspecified; I10 Essential (primary) hypertension; F11.90 Opioid use, unspecified, uncomplicated; F15.90 Other stimulant use, unspecified, uncomplicated; F17.210 Nicotine dependence, cigarettes, uncomplicated; Z79.899 Other long term (current) drug therapy; Z20.822 Contact with and (suspected) exposure to COVID-19
CPT/HCPCS: 36415; 80053; 80307; 81003; 85025; 87426; 99285; G0480

== ENCOUNTER 2021-06-23 00:27 | Emergency (ER) | payer OTHER ==
[~2021-06-23] VITALS: Ht 172.7 cm; Wt 86.4 kg
[2021-06-23] MEDS ORDERED: DiphenhydrAMINE HCL 25 MG CAPSULE PO ONE (01:15)
[2021-06-23] MEDS ORDERED: HALOPERIDOL 5 MG TABLET PO ONE (01:15)
[2021-06-23] MEDS ORDERED: LORazepam 2 MG TABLET PO ONE (01:15)
[2021-06-23] MEDS ORDERED: ZOLPIDEM TARTRATE 10 MG TABLET PO PRN (01:45)
[2021-06-23] MEDS ORDERED: LORazepam 2 MG TABLET PO PRN (01:45)
[2021-06-23] MEDS ORDERED: HALOPERIDOL 5 MG TABLET PO PRN (01:45)
[2021-06-23 01:53] VITALS: BP 114/69
== END 2021-06-23 03:34 | disposition left against medical advice (07) ==
LOC: EMS 00:28
DX: F25.1 Schizoaffective disorder, depressive type (principal); F15.10 Other stimulant abuse, uncomplicated; R45.851 Suicidal ideations; I10 Essential (primary) hypertension; F41.9 Anxiety disorder, unspecified; F11.90 Opioid use, unspecified, uncomplicated; F17.210 Nicotine dependence, cigarettes, uncomplicated; Z79.899 Other long term (current) drug therapy
CPT/HCPCS: 99284; Z7502; Z7610